=== PATIENT | female | born 1935 | race Caucasian/White ===

== ENCOUNTER 2018-01-11 11:29 | Inpatient (IN) ==
[2018-01-11] MEDS ORDERED: ASPIRIN 325 MG TABLET PO STA (11:53)
[2018-01-11 12:22] LABS: Basophils % 0.3 % (0.0-0.8); Eosinophils # 0.1 10*3/uL (0.0-0.87); Eosinophils % 0.4 % (0.00-10.9); Hematocrit 32.5 VOL% (35.7-47.0); Hemoglobin 10.8 GM/DL (12.0-16.0); Immature Granulocytes % 0.3 %; Immature Granulocytes Absolute 0.03 #; Lymphocytes # 1.5 10*3/uL (1.4-4.0); Lymphocytes % 12.9 % (21.3-54.2); Mean Corpuscular HGB Conc 33.2 GM/DL (32-36); Mean Corpuscular Hemoglobin 28 PG (27-34); Mean Corpuscular Volume 84.2 FL (87-102); Mean Platelet Volume 10.2 FL (9.6-12.0); Monocytes # 1.1 10*3/uL (0.11-0.8); Monocytes % 9.8 % (1.7-12.7); Neutrophils # 8.6 10*3/uL (1.4-7.4); Neutrophils % 76.3 % (38.7-73.9); Platelet Count 349 T/CUMM (130-400); Red Blood Count 3.86 MC/CUMM (3.8-5.5); Red Cell Distribution Width 15.7 % (9.3-17.3); White Blood Count 11.3 T/CUMM (4-12)
[2018-01-11 12:32] LABS: INR 1.5; PT Patient Result 15.4 SECS
[2018-01-11] MEDS ORDERED: ASPIRIN 325 MG TABLET ONE (12:39)
[2018-01-11 12:53] LABS: Alanine Aminotransferase 44 U/L (13-56); Albumin 2.9 G/DL (3.4-5.0); Alkaline Phosphatase 100 U/L (45-117); Aspartate Amino Transferase 22 U/L (0-37); Bilirubin,Total < 0.39 MG/DL (0.2-1.0); Blood Urea Nitrogen 13 MG/DL (7-18); Calcium 8.6 MG/DL (8.5-10.1); Glucose 94 MG/DL (74-106); Osmolality,Calculated 269.1 MOS/KG (273-304); Potassium 3.2 MMOL/L (3.5-5.1); Sodium 135 MMOL/L (136-145); Total Protein 6.9 G/DL (6.4-8.3)
[2018-01-11 13:21] LABS: Apearance,Urine Clear (Clear); Bilirubin,Urine Negative (Negative); Blood, Urine Negative (Negative); Glucose,Urine (UA) Negative (Negative); Ictotest,Urine Negative (Negative); Ketones,Urine Negative (Negative); Nitrite,Urine Negative (Negative); Protein,Urine Negative; Urine Color Yellow (Yellow); Urine Urobilinogen 0.2 EU/DL (0.2-1.0)
[2018-01-11] MEDS ORDERED: ACETAMINOPHEN 500 MG TABLET ONE (17:13)
[2018-01-11] MEDS ORDERED: ACETAMINOPHEN 500 MG TABLET PO STA (18:14)
[2018-01-11] MEDS ORDERED: ONDANSETRON 4 MG TABLET PO PRN (19:57)
[2018-01-11] MEDS ORDERED: EZFE PO SCH (21:00)
[2018-01-11] MEDS: METOCLOPRAMIDE 5 MG TABLET PO SCH (21:02)
[2018-01-11] MEDS: MULTIVITAMIN (OCUVITE) TABLET PO SCH (21:02)
[2018-01-11] MEDS: DILTIAZEM 60 MG TABLET PO SCH (21:02)
[2018-01-11] MEDS: PRAVASTATIN 40 MG TABLET PO SCH (21:02)
[2018-01-11] MEDS: POTASSIUM CHLORIDE 10 MEQ TABLET PO SCH (21:03)
[2018-01-11] MEDS: CLINDAMYCIN INJ 600 MG in PREMIX 1 EACH IV SCH (22:09)
[2018-01-11] MEDS: ceFAZolin 1,000 MG in SYRINGE 1 EACH IV SCH (22:11)
[2018-01-11] MEDS: ONDANSETRON 4 MG/2 ML VIAL IV PRN (23:02)
[2018-01-12] MEDS: ACETAMINOPHEN 325 MG TABLET PO PRN ×2 (05:25→22:16)
[2018-01-12] MEDS: CLINDAMYCIN INJ 600 MG in PREMIX 1 EACH IV SCH ×3 (05:26→22:27)
[2018-01-12 05:35] LABS: Basophils % 0.4 % (0.0-0.8); Eosinophils # 0.1 10*3/uL (0.0-0.87); Eosinophils % 1.4 % (0.00-10.9); Hematocrit 30.4 VOL% (35.7-47.0); Hemoglobin 10.1 GM/DL (12.0-16.0); Immature Granulocytes % 0.8 %; Immature Granulocytes Absolute 0.06 #; Lymphocytes # 1.8 10*3/uL (1.4-4.0); Lymphocytes % 22.4 % (21.3-54.2); Mean Corpuscular HGB Conc 33.2 GM/DL (32-36); Mean Corpuscular Hemoglobin 28 PG (27-34); Mean Corpuscular Volume 83.7 FL (87-102); Mean Platelet Volume 10.3 FL (9.6-12.0); Monocytes # 0.8 10*3/uL (0.11-0.8); Monocytes % 9.5 % (1.7-12.7); Neutrophils # 5.2 10*3/uL (1.4-7.4); Neutrophils % 65.5 % (38.7-73.9); Platelet Count 302 T/CUMM (130-400); Red Blood Count 3.63 MC/CUMM (3.8-5.5); Red Cell Distribution Width 15.9 % (9.3-17.3); White Blood Count 7.9 T/CUMM (4-12)
[2018-01-12 06:01] LABS: Albumin 2.6 G/DL (3.4-5.0); Bilirubin,Total 0.8 MG/DL (0.2-1.0); Calcium 8.3 MG/DL (8.5-10.1); Osmolality,Calculated 270.8 MOS/KG (273-304); Potassium 3.5 MMOL/L (3.5-5.1); Total Protein 5.6 G/DL (6.4-8.3)
[2018-01-12] MEDS: METOCLOPRAMIDE 5 MG TABLET PO SCH ×4 (08:30→22:04)
[2018-01-12] MEDS: ASCORBIC ACID 500 MG TABLET PO SCH (08:59)
[2018-01-12] MEDS: DILTIAZEM 60 MG TABLET PO SCH ×2 (09:00→22:08)
[2018-01-12] MEDS: PANTOPRAZOLE 40 MG TABLET PO SCH (09:00)
[2018-01-12] MEDS: POTASSIUM CHLORIDE 10 MEQ TABLET PO SCH ×2 (09:00→22:05)
[2018-01-12] MEDS: MULTIVITAMIN (CENTRUM) TABLET PO SCH (09:00)
[2018-01-12] MEDS: ASPIRIN EC 81 MG TABLET PO SCH (09:01)
[2018-01-12] MEDS: MULTIVITAMIN (OCUVITE) TABLET PO SCH ×2 (09:01→22:09)
[2018-01-12] MEDS: hydroCHLOROthiazide 25 MG TABLET PO SCH (09:01)
[2018-01-12] MEDS: ceFAZolin 1,000 MG in SYRINGE 1 EACH IV SCH ×2 (09:39→22:19)
[2018-01-12] MEDS: busPIRone 5 MG TABLET PO SCH ×2 (11:35→22:08)
[2018-01-12] MEDS: ENOXAPARIN 80 MG/0.8 ML SYRINGE SUBCUT SCH ×2 (11:36→23:00)
[2018-01-12] MEDS: SOTALOL 80 MG TABLET PO SCH (22:06)
[2018-01-12] MEDS: PRAVASTATIN 40 MG TABLET PO SCH (22:08)
[2018-01-12] MEDS: MELATONIN 3 MG TABLET PO SCH (22:10)
[2018-01-13] MEDS: ONDANSETRON 4 MG/2 ML VIAL IV PRN ×4 (03:50→21:53)
[2018-01-13] MEDS: CLINDAMYCIN INJ 600 MG in PREMIX 1 EACH IV SCH (06:45)
[2018-01-13] MEDS: METOCLOPRAMIDE 5 MG TABLET PO SCH ×4 (07:38→20:35)
[2018-01-13] MEDS: MULTIVITAMIN (CENTRUM) TABLET PO SCH (09:46)
[2018-01-13] MEDS: MULTIVITAMIN (OCUVITE) TABLET PO SCH ×2 (09:46→20:36)
[2018-01-13] MEDS: ASCORBIC ACID 500 MG TABLET PO SCH (09:46)
[2018-01-13] MEDS: SOTALOL 80 MG TABLET PO SCH ×2 (09:47→20:41)
[2018-01-13] MEDS: busPIRone 5 MG TABLET PO SCH ×2 (09:47→20:35)
[2018-01-13] MEDS: POTASSIUM CHLORIDE 10 MEQ TABLET PO SCH ×2 (09:47→20:37)
[2018-01-13] MEDS: DILTIAZEM 60 MG TABLET PO SCH ×2 (09:47→20:35)
[2018-01-13] MEDS: hydroCHLOROthiazide 25 MG TABLET PO SCH (09:47)
[2018-01-13] MEDS: ASPIRIN EC 81 MG TABLET PO SCH (09:47)
[2018-01-13] MEDS: PANTOPRAZOLE 40 MG TABLET PO SCH (09:47)
[2018-01-13] MEDS: ceFAZolin 1,000 MG in SYRINGE 1 EACH IV SCH ×2 (09:59→22:23)
[2018-01-13] MEDS ORDERED: DIAZEPAM 5 MG TABLET PO ONE (10:23)
[2018-01-13] MEDS: ENOXAPARIN 80 MG/0.8 ML SYRINGE SUBCUT SCH ×2 (10:35→23:25)
[2018-01-13] MEDS: ACETAMINOPHEN 325 MG TABLET PO PRN ×2 (14:06→21:53)
[2018-01-13] MEDS ORDERED: ZINC OXIDE PASTE 113 GM TUBE TOP PRN (16:42)
[2018-01-13] MEDS: PRAVASTATIN 40 MG TABLET PO SCH (20:36)
[2018-01-13] MEDS: MELATONIN 3 MG TABLET PO SCH (20:41)
[2018-01-14 04:40] LABS: Basophils % 0.4 % (0.0-0.8); Eosinophils # 0.1 10*3/uL (0.0-0.87); Eosinophils % 1.7 % (0.00-10.9); Hematocrit 34.6 VOL% (35.7-47.0); Immature Granulocytes % 0.4 %; Immature Granulocytes Absolute 0.03 #; Lymphocytes # 1.4 10*3/uL (1.4-4.0); Lymphocytes % 17.7 % (21.3-54.2); Mean Corpuscular HGB Conc 31.8 GM/DL (32-36); Mean Corpuscular Hemoglobin 28 PG (27-34); Mean Corpuscular Volume 86.7 FL (87-102); Mean Platelet Volume 10.6 FL (9.6-12.0); Monocytes # 0.6 10*3/uL (0.11-0.8); Monocytes % 8.2 % (1.7-12.7); Neutrophils # 5.6 10*3/uL (1.4-7.4); Neutrophils % 71.6 % (38.7-73.9); Platelet Count 356 T/CUMM (130-400); Red Blood Count 3.99 MC/CUMM (3.8-5.5); Red Cell Distribution Width 15.5 % (9.3-17.3); White Blood Count 7.8 T/CUMM (4-12)
[2018-01-14 04:57] LABS: Calcium 8.6 MG/DL (8.5-10.1); Potassium 3.4 MMOL/L (3.5-5.1)
[2018-01-14 05:02] LABS: Albumin 2.7 G/DL (3.4-5.0); Bilirubin,Total 0.5 MG/DL (0.2-1.0); Calcium 8.5 MG/DL (8.5-10.1); Osmolality,Calculated 272.8 MOS/KG (273-304); Potassium 3.5 MMOL/L (3.5-5.1); Total Protein 6.2 G/DL (6.4-8.3)
[2018-01-14 05:03] LABS: % Iron Saturation 15.7 % (18-50); Ferritin 143.4 ng/ml (8-252)
[2018-01-14] MEDS: ONDANSETRON 4 MG/2 ML VIAL IV PRN (05:40)
[2018-01-14] MEDS ORDERED: DIAZEPAM 5 MG TABLET PO ONE ×2 (06:00→08:26)
[2018-01-14] MEDS: METOCLOPRAMIDE 5 MG TABLET PO SCH ×4 (08:35→21:46)
[2018-01-14] MEDS ORDERED: fentaNYL 100 MCG/2 ML VIAL ONE (09:25)
[2018-01-14] MEDS ORDERED: MIDAZOLAM 2 MG/2 ML VIAL ONE (09:25)
[2018-01-14] MEDS ORDERED: PROPOFOL 200 MG/20 ML VIAL IV ONE (10:00)
[2018-01-14] MEDS ORDERED: LIDOCAINE 2% 5 ML VIAL ONE (10:00)
[2018-01-14] MEDS ORDERED: ONDANSETRON 4 MG/2 ML VIAL ONE (10:00)
[2018-01-14] MEDS: ceFAZolin 1,000 MG in SYRINGE 1 EACH IV SCH ×3 (10:17→22:55)
[2018-01-14] MEDS ORDERED: MAGNESIUM SULF RIDER 4 GM in PREMIX 1 EACH IV PRN (11:15)
[2018-01-14] MEDS: ENOXAPARIN 80 MG/0.8 ML SYRINGE SUBCUT SCH (12:32)
[2018-01-14] MEDS: DILTIAZEM 60 MG TABLET PO SCH ×2 (13:30→21:43)
[2018-01-14] MEDS: SOTALOL 80 MG TABLET PO SCH ×2 (13:30→21:44)
[2018-01-14] MEDS: ASPIRIN EC 81 MG TABLET PO SCH (13:31)
[2018-01-14] MEDS: POTASSIUM CHLORIDE 10 MEQ TABLET PO SCH ×2 (13:31→21:46)
[2018-01-14] MEDS: PANTOPRAZOLE 40 MG TABLET PO SCH (13:31)
[2018-01-14] MEDS: hydroCHLOROthiazide 25 MG TABLET PO SCH (13:31)
[2018-01-14] MEDS: busPIRone 5 MG TABLET PO SCH ×2 (13:32→21:44)
[2018-01-14] MEDS: MULTIVITAMIN (CENTRUM) TABLET PO SCH (13:33)
[2018-01-14] MEDS: MULTIVITAMIN (OCUVITE) TABLET PO SCH ×2 (13:33→21:47)
[2018-01-14] MEDS: ASCORBIC ACID 500 MG TABLET PO SCH (13:33)
[2018-01-14] MEDS ORDERED: IRON SUCROSE 300 MG in SODIUM CHLORIDE 0.9% 100 ML IV ONE (13:58)
[2018-01-14] MEDS: ACETAMINOPHEN 325 MG TABLET PO PRN (14:45)
[2018-01-14] MEDS ORDERED: POLYETHYLENE GLYCOL POWDER 255 GM BOTTLE PO ONE (18:10)
[2018-01-14] MEDS: PRAVASTATIN 40 MG TABLET PO SCH (21:46)
[2018-01-15] MEDS: MELATONIN 3 MG TABLET PO SCH ×2 (00:01→21:06)
[2018-01-15] MEDS: ceFAZolin 1,000 MG in SYRINGE 1 EACH IV SCH ×3 (00:05→21:08)
[2018-01-15] MEDS: ENOXAPARIN 80 MG/0.8 ML SYRINGE SUBCUT SCH ×2 (02:05→11:41)
[2018-01-15] MEDS: ONDANSETRON 4 MG/2 ML VIAL IV PRN ×2 (02:16→17:37)
[2018-01-15 04:42] LABS: Basophils % 0.4 % (0.0-0.8); Eosinophils # 0.1 10*3/uL (0.0-0.87); Eosinophils % 0.9 % (0.00-10.9); Hemoglobin 10.6 GM/DL (12.0-16.0); Immature Granulocytes % 0.7 %; Immature Granulocytes Absolute 0.06 #; Lymphocytes # 1.2 10*3/uL (1.4-4.0); Lymphocytes % 13.1 % (21.3-54.2); Mean Corpuscular HGB Conc 32.1 GM/DL (32-36); Mean Corpuscular Hemoglobin 28 PG (27-34); Mean Corpuscular Volume 86.2 FL (87-102); Mean Platelet Volume 10.4 FL (9.6-12.0); Monocytes # 0.8 10*3/uL (0.11-0.8); Monocytes % 8.3 % (1.7-12.7); Neutrophils # 6.9 10*3/uL (1.4-7.4); Neutrophils % 76.6 % (38.7-73.9); Platelet Count 330 T/CUMM (130-400); Red Blood Count 3.83 MC/CUMM (3.8-5.5); Red Cell Distribution Width 15.5 % (9.3-17.3); White Blood Count 9.1 T/CUMM (4-12)
[2018-01-15 05:12] LABS: Calcium 8.4 MG/DL (8.5-10.1); Osmolality,Calculated 274.7 MOS/KG (273-304); Potassium 3.3 MMOL/L (3.5-5.1)
[2018-01-15 05:41] LABS: Folate 15.8 NG/ML (5.4-24.0)
[2018-01-15] MEDS ORDERED: MAGNESIUM CITRATE 300 ML BOTTLE PO ONE (06:00)
[2018-01-15] MEDS: METOCLOPRAMIDE 5 MG TABLET PO SCH ×4 (08:49→21:08)
[2018-01-15] MEDS: MAGNESIUM SULF RIDER 2 GM in PREMIX 1 EACH IV PRN (09:10)
[2018-01-15] MEDS: ASPIRIN EC 81 MG TABLET PO SCH ×2 (09:39→14:47)
[2018-01-15] MEDS: SOTALOL 80 MG TABLET PO SCH ×3 (09:39→21:06)
[2018-01-15] MEDS: DILTIAZEM 60 MG TABLET PO SCH ×3 (09:40→21:06)
[2018-01-15] MEDS: hydroCHLOROthiazide 25 MG TABLET PO SCH ×2 (09:40→14:44)
[2018-01-15] MEDS: POTASSIUM CHLORIDE 10 MEQ TABLET PO SCH ×3 (09:40→21:05)
[2018-01-15] MEDS: MULTIVITAMIN (CENTRUM) TABLET PO SCH ×2 (09:40→14:45)
[2018-01-15] MEDS: busPIRone 5 MG TABLET PO SCH ×2 (09:40→21:08)
[2018-01-15] MEDS: PANTOPRAZOLE 40 MG TABLET PO SCH ×2 (09:41→14:46)
[2018-01-15] MEDS: MULTIVITAMIN (OCUVITE) TABLET PO SCH ×3 (09:41→21:06)
[2018-01-15] MEDS: ASCORBIC ACID 500 MG TABLET PO SCH ×2 (09:41→14:46)
[2018-01-15] MEDS: CHOLECALCIFEROL 1,000 UNIT TABLET PO SCH ×2 (09:41→14:45)
[2018-01-15] MEDS ORDERED: ONDANSETRON 4 MG/2 ML VIAL ONE (12:39)
[2018-01-15] MEDS ORDERED: PROPOFOL 200 MG/20 ML VIAL IV ONE (12:39)
[2018-01-15] MEDS ORDERED: LIDOCAINE 2% 5 ML VIAL ONE (12:39)
[2018-01-15] MEDS: APIXABAN 5 MG TABLET PO SCH ×2 (14:44→21:06)
[2018-01-15] MEDS: POTASSIUM CHLORIDE RIDER 10 MEQ in PREMIX 1 EACH IV PRN ×3 (14:50→23:29)
[2018-01-15] MEDS: ACETAMINOPHEN 325 MG TABLET PO PRN (17:38)
[2018-01-15] MEDS: PRAVASTATIN 40 MG TABLET PO SCH (21:07)
[2018-01-16] MEDS: ACETAMINOPHEN 325 MG TABLET PO PRN (00:13)
[2018-01-16] MEDS: POTASSIUM CHLORIDE RIDER 10 MEQ in PREMIX 1 EACH IV PRN (03:30)
[2018-01-16 05:34] LABS: Basophils % 0.3 % (0.0-0.8); Eosinophils # 0.1 10*3/uL (0.0-0.87); Hematocrit 31.9 VOL% (35.7-47.0); Hemoglobin 9.9 GM/DL (12.0-16.0); Immature Granulocytes % 0.5 %; Immature Granulocytes Absolute 0.05 #; Lymphocytes # 1.8 10*3/uL (1.4-4.0); Lymphocytes % 19.3 % (21.3-54.2); Mean Corpuscular Hemoglobin 27 PG (27-34); Mean Corpuscular Volume 86.4 FL (87-102); Mean Platelet Volume 10.2 FL (9.6-12.0); Monocytes % 10.1 % (1.7-12.7); Neutrophils # 6.4 10*3/uL (1.4-7.4); Neutrophils % 68.8 % (38.7-73.9); Platelet Count 296 T/CUMM (130-400); Red Blood Count 3.69 MC/CUMM (3.8-5.5); Red Cell Distribution Width 15.8 % (9.3-17.3); White Blood Count 9.4 T/CUMM (4-12)
[2018-01-16 06:05] LABS: Alanine Aminotransferase 28 U/L (13-56); Albumin 2.4 G/DL (3.4-5.0); Alkaline Phosphatase 90 U/L (45-117); Aspartate Amino Transferase 20 U/L (0-37); Bilirubin,Total < 0.39 MG/DL (0.2-1.0); Blood Urea Nitrogen 15 MG/DL (7-18); Glucose 100 MG/DL (74-106); Osmolality,Calculated 273.8 MOS/KG (273-304); Potassium 3.9 MMOL/L (3.5-5.1); Sodium 137 MMOL/L (136-145); Total Protein 5.5 G/DL (6.4-8.3)
[2018-01-16] MEDS: ceFAZolin 1,000 MG in SYRINGE 1 EACH IV SCH ×2 (09:57→23:12)
[2018-01-16] MEDS: MULTIVITAMIN (CENTRUM) TABLET PO SCH (09:58)
[2018-01-16] MEDS: POTASSIUM CHLORIDE 10 MEQ TABLET PO SCH ×2 (09:58→23:00)
[2018-01-16] MEDS: busPIRone 5 MG TABLET PO SCH ×2 (09:58→23:01)
[2018-01-16] MEDS: SOTALOL 80 MG TABLET PO SCH ×2 (09:58→23:01)
[2018-01-16] MEDS: PANTOPRAZOLE 40 MG TABLET PO SCH (09:58)
[2018-01-16] MEDS: METOCLOPRAMIDE 5 MG TABLET PO SCH ×3 (09:59→16:13)
[2018-01-16] MEDS: hydroCHLOROthiazide 25 MG TABLET PO SCH (09:59)
[2018-01-16] MEDS: ASPIRIN EC 81 MG TABLET PO SCH (09:59)
[2018-01-16] MEDS: APIXABAN 5 MG TABLET PO SCH ×2 (09:59→23:01)
[2018-01-16] MEDS: CHOLECALCIFEROL 1,000 UNIT TABLET PO SCH (09:59)
[2018-01-16] MEDS: ASCORBIC ACID 500 MG TABLET PO SCH (09:59)
[2018-01-16] MEDS: MULTIVITAMIN (OCUVITE) TABLET PO SCH (10:00)
[2018-01-16] MEDS: DILTIAZEM 60 MG TABLET PO SCH (10:00)
[2018-01-16] MEDS ORDERED: TUBERCULIN SKIN TEST 0.1 ML SYRINGE INTRADERM ONE (10:40)
[2018-01-16] MEDS: MELATONIN 3 MG TABLET PO SCH (23:00)
[2018-01-16] MEDS: ZALEPLON 5 MG CAPSULE PO PRN (23:01)
[2018-01-16] MEDS: PRAVASTATIN 40 MG TABLET PO SCH (23:01)
[2018-01-16] MEDS: DILTIAZEM 30 MG TABLET PO SCH (23:01)
[2018-01-17] MEDS: ONDANSETRON 4 MG/2 ML VIAL IV PRN ×2 (00:15→05:00)
[2018-01-17 05:13] LABS: Basophils % 0.5 % (0.0-0.8); Eosinophils # 0.2 10*3/uL (0.0-0.87); Eosinophils % 2.5 % (0.00-10.9); Hematocrit 34.8 VOL% (35.7-47.0); Hemoglobin 10.7 GM/DL (12.0-16.0); Immature Granulocytes % 0.5 %; Immature Granulocytes Absolute 0.04 #; Lymphocytes # 1.9 10*3/uL (1.4-4.0); Lymphocytes % 22.3 % (21.3-54.2); Mean Corpuscular HGB Conc 30.7 GM/DL (32-36); Mean Corpuscular Hemoglobin 27 PG (27-34); Mean Corpuscular Volume 87.7 FL (87-102); Mean Platelet Volume 10.2 FL (9.6-12.0); Monocytes # 0.8 10*3/uL (0.11-0.8); Monocytes % 8.9 % (1.7-12.7); Neutrophils # 5.6 10*3/uL (1.4-7.4); Neutrophils % 65.3 % (38.7-73.9); Platelet Count 306 T/CUMM (130-400); Red Blood Count 3.97 MC/CUMM (3.8-5.5); Red Cell Distribution Width 15.9 % (9.3-17.3); White Blood Count 8.6 T/CUMM (4-12)
[2018-01-17 05:50] LABS: Albumin 2.7 G/DL (3.4-5.0); Bilirubin,Total 0.5 MG/DL (0.2-1.0); Calcium 8.7 MG/DL (8.5-10.1); Osmolality,Calculated 278.5 MOS/KG (273-304); Potassium 3.7 MMOL/L (3.5-5.1); Total Protein 6.3 G/DL (6.4-8.3)
[2018-01-17] MEDS ORDERED: FUROSEMIDE 40 MG/4 ML VIAL ONE (06:09)
[2018-01-17] MEDS ORDERED: FUROSEMIDE 40 MG/4 ML VIAL IV ONE (07:04)
[2018-01-17] MEDS ORDERED: FUROSEMIDE 40 MG/4 ML VIAL IV SCH (09:00)
[2018-01-17] MEDS: SOTALOL 80 MG TABLET PO SCH ×2 (09:24→20:55)
[2018-01-17] MEDS: CHOLECALCIFEROL 1,000 UNIT TABLET PO SCH (09:24)
[2018-01-17] MEDS: PANTOPRAZOLE 40 MG TABLET PO SCH (09:25)
[2018-01-17] MEDS: busPIRone 5 MG TABLET PO SCH ×2 (09:25→20:56)
[2018-01-17] MEDS: DILTIAZEM 30 MG TABLET PO SCH ×2 (09:25→20:56)
[2018-01-17] MEDS: POTASSIUM CHLORIDE 10 MEQ TABLET PO SCH ×2 (09:25→20:56)
[2018-01-17] MEDS: APIXABAN 5 MG TABLET PO SCH ×2 (09:25→20:55)
[2018-01-17] MEDS: ASCORBIC ACID 500 MG TABLET PO SCH (09:25)
[2018-01-17] MEDS: ASPIRIN EC 81 MG TABLET PO SCH (09:25)
[2018-01-17] MEDS: hydroCHLOROthiazide 25 MG TABLET PO SCH (09:25)
[2018-01-17] MEDS: ceFAZolin 1,000 MG in SYRINGE 1 EACH IV SCH (09:26)
[2018-01-17] MEDS: ANORO ELLIPTA INH SCH (13:06)
[2018-01-17] MEDS: FUROSEMIDE 20 MG TABLET PO SCH (13:18)
[2018-01-17] MEDS: MELATONIN 3 MG TABLET PO SCH (20:55)
[2018-01-17] MEDS: PRAVASTATIN 40 MG TABLET PO SCH (20:56)
[2018-01-17] MEDS: ZALEPLON 5 MG CAPSULE PO PRN (22:18)
[2018-01-18 05:30] LABS: Basophils # 0.1 10*3/uL (0.0-0.2); Basophils % 0.7 % (0.0-0.8); Eosinophils # 0.2 10*3/uL (0.0-0.87); Eosinophils % 2.5 % (0.00-10.9); Hematocrit 34.5 VOL% (35.7-47.0); Hemoglobin 10.7 GM/DL (12.0-16.0); Immature Granulocytes % 0.7 %; Immature Granulocytes Absolute 0.05 #; Lymphocytes # 1.7 10*3/uL (1.4-4.0); Lymphocytes % 23.5 % (21.3-54.2); Mean Corpuscular Hemoglobin 27 PG (27-34); Mean Corpuscular Volume 87.3 FL (87-102); Mean Platelet Volume 10.2 FL (9.6-12.0); Monocytes # 0.7 10*3/uL (0.11-0.8); Monocytes % 9.5 % (1.7-12.7); Neutrophils # 4.6 10*3/uL (1.4-7.4); Neutrophils % 63.1 % (38.7-73.9); Platelet Count 326 T/CUMM (130-400); Red Blood Count 3.95 MC/CUMM (3.8-5.5); Red Cell Distribution Width 15.9 % (9.3-17.3); White Blood Count 7.3 T/CUMM (4-12)
[2018-01-18] MEDS: ONDANSETRON 4 MG/2 ML VIAL IV PRN (05:55)
[2018-01-18 06:15] LABS: Albumin 2.7 G/DL (3.4-5.0); Bilirubin,Total 0.5 MG/DL (0.2-1.0); Calcium 8.4 MG/DL (8.5-10.1); Osmolality,Calculated 272.8 MOS/KG (273-304); Potassium 3.6 MMOL/L (3.5-5.1); Total Protein 5.9 G/DL (6.4-8.3)
[2018-01-18] MEDS: CHOLECALCIFEROL 1,000 UNIT TABLET PO SCH (09:46)
[2018-01-18] MEDS: SOTALOL 80 MG TABLET PO SCH ×2 (09:46→21:27)
[2018-01-18] MEDS: ASCORBIC ACID 500 MG TABLET PO SCH (09:46)
[2018-01-18] MEDS: FUROSEMIDE 20 MG TABLET PO SCH (09:47)
[2018-01-18] MEDS: POTASSIUM CHLORIDE 10 MEQ TABLET PO SCH ×2 (09:47→21:28)
[2018-01-18] MEDS: ASPIRIN EC 81 MG TABLET PO SCH (09:47)
[2018-01-18] MEDS: busPIRone 5 MG TABLET PO SCH ×2 (09:47→21:27)
[2018-01-18] MEDS: APIXABAN 5 MG TABLET PO SCH ×2 (09:47→21:28)
[2018-01-18] MEDS: PANTOPRAZOLE 40 MG TABLET PO SCH (09:47)
[2018-01-18] MEDS: DILTIAZEM 30 MG TABLET PO SCH ×2 (09:47→21:27)
[2018-01-18] MEDS: ANORO ELLIPTA INH SCH (09:48)
[2018-01-18] MEDS ORDERED: POLYETHYLENE GLYCOL POWDER 17 GM PACK PO PRN (09:53)
[2018-01-18] MEDS: MAGNESIUM SULF RIDER 2 GM in PREMIX 1 EACH IV PRN (14:20)
[2018-01-18] MEDS: DOCUSATE SODIUM 100 MG CAPSULE PO SCH (21:27)
[2018-01-18] MEDS: MELATONIN 3 MG TABLET PO SCH (21:28)
[2018-01-18] MEDS: PRAVASTATIN 40 MG TABLET PO SCH (21:28)
[2018-01-18] MEDS: ACETAMINOPHEN 325 MG TABLET PO PRN (23:33)
[2018-01-19] MEDS: SOTALOL 80 MG TABLET PO SCH ×2 (09:27→20:30)
[2018-01-19] MEDS: APIXABAN 5 MG TABLET PO SCH ×2 (09:27→20:31)
[2018-01-19] MEDS: PANTOPRAZOLE 40 MG TABLET PO SCH (09:27)
[2018-01-19] MEDS: DOCUSATE SODIUM 100 MG CAPSULE PO SCH ×2 (09:27→20:31)
[2018-01-19] MEDS: DILTIAZEM 30 MG TABLET PO SCH ×2 (09:27→20:31)
[2018-01-19] MEDS: POTASSIUM CHLORIDE 10 MEQ TABLET PO SCH ×2 (09:28→20:31)
[2018-01-19] MEDS: CHOLECALCIFEROL 1,000 UNIT TABLET PO SCH (09:28)
[2018-01-19] MEDS: ASPIRIN EC 81 MG TABLET PO SCH (09:28)
[2018-01-19] MEDS: FUROSEMIDE 20 MG TABLET PO SCH (09:28)
[2018-01-19] MEDS: busPIRone 5 MG TABLET PO SCH ×2 (09:28→20:31)
[2018-01-19] MEDS: ASCORBIC ACID 500 MG TABLET PO SCH (09:28)
[2018-01-19] MEDS: ANORO ELLIPTA INH SCH (09:29)
[2018-01-19] MEDS: MELATONIN 3 MG TABLET PO SCH (20:32)
[2018-01-19] MEDS: PRAVASTATIN 40 MG TABLET PO SCH (20:32)
[2018-01-20] MEDS: DOCUSATE SODIUM 100 MG CAPSULE PO SCH ×2 (09:12→21:30)
[2018-01-20] MEDS: CHOLECALCIFEROL 1,000 UNIT TABLET PO SCH (09:12)
[2018-01-20] MEDS: SOTALOL 80 MG TABLET PO SCH ×2 (09:12→21:30)
[2018-01-20] MEDS: APIXABAN 5 MG TABLET PO SCH ×2 (09:12→21:30)
[2018-01-20] MEDS: FUROSEMIDE 20 MG TABLET PO SCH (09:13)
[2018-01-20] MEDS: POTASSIUM CHLORIDE 10 MEQ TABLET PO SCH ×2 (09:13→21:30)
[2018-01-20] MEDS: DILTIAZEM 30 MG TABLET PO SCH ×2 (09:14→21:30)
[2018-01-20] MEDS: busPIRone 5 MG TABLET PO SCH ×2 (09:14→21:38)
[2018-01-20] MEDS: ASPIRIN EC 81 MG TABLET PO SCH (09:14)
[2018-01-20] MEDS: ASCORBIC ACID 500 MG TABLET PO SCH (09:14)
[2018-01-20] MEDS: ANORO ELLIPTA INH SCH (09:15)
[2018-01-20] MEDS: PANTOPRAZOLE 40 MG TABLET PO SCH (09:15)
[2018-01-20] MEDS: ACETAMINOPHEN 325 MG TABLET PO PRN (18:48)
[2018-01-20] MEDS: PRAVASTATIN 40 MG TABLET PO SCH (21:29)
[2018-01-20] MEDS: MELATONIN 3 MG TABLET PO SCH (21:30)
[2018-01-21 05:05] LABS: Basophils % 0.7 % (0.0-0.8); Eosinophils # 0.2 10*3/uL (0.0-0.87); Eosinophils % 2.7 % (0.00-10.9); Hematocrit 34.2 VOL% (35.7-47.0); Hemoglobin 10.7 GM/DL (12.0-16.0); Immature Granulocytes % 0.8 %; Immature Granulocytes Absolute 0.05 #; Lymphocytes # 1.6 10*3/uL (1.4-4.0); Lymphocytes % 27.3 % (21.3-54.2); Mean Corpuscular HGB Conc 31.3 GM/DL (32-36); Mean Corpuscular Hemoglobin 28 PG (27-34); Mean Corpuscular Volume 88.1 FL (87-102); Mean Platelet Volume 10.4 FL (9.6-12.0); Monocytes # 0.6 10*3/uL (0.11-0.8); Neutrophils # 3.5 10*3/uL (1.4-7.4); Neutrophils % 58.5 % (38.7-73.9); Platelet Count 318 T/CUMM (130-400); Red Blood Count 3.88 MC/CUMM (3.8-5.5); Red Cell Distribution Width 16.4 % (9.3-17.3)
[2018-01-21 05:42] LABS: Calcium 8.5 MG/DL (8.5-10.1); Osmolality,Calculated 280.5 MOS/KG (273-304); Potassium 4.2 MMOL/L (3.5-5.1)
[2018-01-21] MEDS: POTASSIUM CHLORIDE 10 MEQ TABLET PO SCH (09:24)
[2018-01-21] MEDS: SOTALOL 80 MG TABLET PO SCH (09:24)
[2018-01-21] MEDS: CHOLECALCIFEROL 1,000 UNIT TABLET PO SCH (09:24)
[2018-01-21] MEDS: DOCUSATE SODIUM 100 MG CAPSULE PO SCH (09:25)
[2018-01-21] MEDS: FUROSEMIDE 20 MG TABLET PO SCH (09:25)
[2018-01-21] MEDS: ASCORBIC ACID 500 MG TABLET PO SCH (09:25)
[2018-01-21] MEDS: ASPIRIN EC 81 MG TABLET PO SCH (09:25)
[2018-01-21] MEDS: DILTIAZEM 30 MG TABLET PO SCH (09:25)
[2018-01-21] MEDS: APIXABAN 5 MG TABLET PO SCH (09:25)
[2018-01-21] MEDS: busPIRone 5 MG TABLET PO SCH (09:25)
[2018-01-21] MEDS: PANTOPRAZOLE 40 MG TABLET PO SCH (09:25)
[2018-01-21] MEDS: ANORO ELLIPTA INH SCH (09:44)
[2018-01-21 12:00] VITALS: BP 120/66
== END 2018-01-21 13:44 | disposition swing bed (61) | DRG 308 ==
LOC: EDUNIT# → EDBD → N.ED 11:29 → N.EDINP 17:58 → SUATTDRO 17:58 → N.TELEN 18:32
PROVIDERS: ADMIT Hospitalist; ATTEND Internal Medicine

== ENCOUNTER 2020-12-13 20:32 | Inpatient (IN) ==
[2020-12-13 21:45] LABS: Basophils % 0.2 % (0.0-0.8); Eosinophils # 0.1 10*3/uL (0.0-0.87); Hematocrit 37.9 VOL% (35.7-47.0); Hemoglobin 12.2 GM/DL (12.0-16.0); Immature Granulocytes % 0.5 %; Immature Granulocytes Absolute 0.04 #; Lymphocytes # 1.4 10*3/uL (1.4-4.0); Mean Corpuscular HGB Conc 32.2 GM/DL (32-36); Mean Corpuscular Volume 95.5 FL (87-102); Mean Platelet Volume 10.5 FL (9.6-12.0); Monocytes % 8.4 % (1.7-12.7); Neutrophils % 73.9 % (38.7-73.9); Platelet Count 186 T/CUMM (130-400); Red Blood Count 3.97 MC/CUMM (3.8-5.5); Red Cell Distribution Width 14.3 % (9.3-17.3); White Blood Count 8.8 T/CUMM (4-12)
[2020-12-13 22:07] LABS: Alanine Aminotransferase 22 U/L (13-56); Albumin 3.1 G/DL (3.4-5.0); Alkaline Phosphatase 87 U/L (45-117); Aspartate Amino Transferase 35 U/L (0-37); Blood Urea Nitrogen 28 MG/DL (7-18); Calcium 8.6 MG/DL (8.5-10.1); Carbon Dioxide 28 MMOL/L (21-32); Estimated Glom Filtration Rate 46 ML/MIN; Glucose 120 MG/DL (74-106); Osmolality,Calculated 287.3 MOS/KG (273-304); Potassium 4.2 MMOL/L (3.5-5.1); Sodium 141 MMOL/L (136-145); Total Protein 6.7 G/DL (6.4-8.2); Troponin I < 0.015 NG/ML (0.00-0.045)
[2020-12-13 22:25] LABS: Bilirubin,Urine Negative (Negative); Blood, Urine Negative (Negative); Glucose,Urine (UA) Negative (Negative); Ketones,Urine Negative (Negative); Mucus,Urine Occasional /LPF (Occasional); Nitrite,Urine Negative (Negative); Protein,Urine Negative; RBC,Urine 7 /HPF (0-4); Squamous Epithelial Cell,Urine Occasional /HPF (0-10); Urine Appearance Slightly Hazy (Clear); Urine Color Yellow (Yellow); Urine Specific Gravity 1.021 (1.001-1.035); Urine Urobilinogen < 2.0 EU/DL (0.2-1.0); WBC,Urine 3 /HPF (0-6)
[2020-12-13] MEDS ORDERED: NITROGLYCERIN 2% OINT 1 INCH/GM PACK TOP STA (22:40)
[2020-12-13] MEDS ORDERED: ASPIRIN EC 325 MG TABLET PO STA (22:40)
[2020-12-13] MEDS ORDERED: MORPHINE 4 MG/1 ML VIAL IV STA (22:41)
[2020-12-13] MEDS ORDERED: ONDANSETRON 4 MG/2 ML VIAL ONE (22:56)
[2020-12-14 00:28] LABS: INR 1.1; PT Patient Result 11.4 SECS (9.8-11.9)
[2020-12-14] MEDS ORDERED: DEXTROSE 50% 25 GM/50 ML VIAL IV PRN (00:55)
[2020-12-14] MEDS ORDERED: GLUCAGON 1 MG VIAL IM PRN (00:55)
[2020-12-14] MEDS ORDERED: LORazepam 0.5 MG TABLET PO PRN (01:09)
[2020-12-14] MEDS: APIXABAN 2.5 MG TABLET PO SCH ×3 (01:30→21:27)
[2020-12-14] MEDS: LORazepam 1 MG TABLET PO PRN ×3 (02:35→21:30)
[2020-12-14 04:47] LABS: Basophils % 0.3 % (0.0-0.8); Eosinophils # 0.1 10*3/uL (0.0-0.87); Eosinophils % 1.3 % (0.00-10.9); Hemoglobin 11.1 GM/DL (12.0-16.0); Immature Granulocytes % 0.6 %; Immature Granulocytes Absolute 0.04 #; Lymphocytes # 1.8 10*3/uL (1.4-4.0); Lymphocytes % 25.6 % (21.3-54.2); Mean Corpuscular HGB Conc 31.7 GM/DL (32-36); Mean Corpuscular Volume 96.4 FL (87-102); Mean Platelet Volume 10.5 FL (9.6-12.0); Monocytes % 8.4 % (1.7-12.7); Neutrophils % 63.8 % (38.7-73.9); Platelet Count 143 T/CUMM (130-400); Red Blood Count 3.63 MC/CUMM (3.8-5.5); Red Cell Distribution Width 14.4 % (9.3-17.3); White Blood Count 7.1 T/CUMM (4-12)
[2020-12-14 05:14] LABS: Albumin 2.8 G/DL (3.4-5.0); Bilirubin,Total 0.5 MG/DL (0.2-1.0); Calcium 7.9 MG/DL (8.5-10.1); Potassium 3.6 MMOL/L (3.5-5.1); Risk Ratio 3.28; Thyroid Stimulating Hormone 2.63 uIU/ml (0.358-3.74); Total Protein 5.7 G/DL (6.4-8.2); VLDL CHOLESTEROL 22.2 MG/DL
[2020-12-14] MEDS ORDERED: hydrALAZINE 20 MG/1 ML VIAL IV PRN (05:21)
[2020-12-14] MEDS ORDERED: METOCLOPRAMIDE 5 MG TABLET PO PRN (08:15)
[2020-12-14] MEDS ORDERED: METOPROLOL TARTRATE 25 MG TABLET PO SCH (09:00)
[2020-12-14] MEDS ORDERED: METOPROLOL TARTRATE 50 MG TABLET PO SCH (09:00)
[2020-12-14] MEDS: ASPIRIN EC 81 MG TABLET PO SCH ×2 (09:05→21:29)
[2020-12-14] MEDS: PANTOPRAZOLE 40 MG TABLET PO SCH ×2 (09:05→21:24)
[2020-12-14] MEDS: CHOLECALCIFEROL 1,000 UNIT TABLET PO SCH (12:22)
[2020-12-14] MEDS: METOPROLOL TARTRATE 25 MG TABLET PO SCH ×2 (12:23→21:26)
[2020-12-14] MEDS ORDERED: ZINC GLUCONATE 50 MG TABLET PO ONE (21:20)
[2020-12-14] MEDS: ASCORBIC ACID 500 MG TABLET PO SCH (21:28)
[2020-12-14] MEDS: LOSARTAN 50 MG TABLET PO SCH (21:29)
[2020-12-14] MEDS: VITAMIN E 400 UNIT CAPSULE PO SCH (21:30)
[2020-12-14] MEDS: MULTIVITAMIN (INTRINSIC) CAPSULE PO SCH (21:31)
[2020-12-14] MEDS: POTASSIUM CHLORIDE 10 MEQ TABLET PO SCH (21:41)
[2020-12-14] MEDS: LATANOPROST 0.005% OPH SOLN 2.5 ML BOTTLE BOTH EYES SCH (21:42)
[2020-12-14] MEDS: ACETAMINOPHEN 325 MG TABLET PO PRN (23:55)
[2020-12-15] MEDS: CHOLECALCIFEROL 1,000 UNIT TABLET PO SCH (09:02)
[2020-12-15] MEDS: ASPIRIN EC 81 MG TABLET PO SCH (09:02)
[2020-12-15] MEDS: PYRIDOXINE 100 MG TABLET PO SCH (09:02)
[2020-12-15] MEDS: PANTOPRAZOLE 40 MG TABLET PO SCH (09:02)
[2020-12-15] MEDS: APIXABAN 2.5 MG TABLET PO SCH ×2 (09:02→20:57)
[2020-12-15] MEDS: POTASSIUM CHLORIDE 10 MEQ TABLET PO SCH ×2 (09:02→21:01)
[2020-12-15] MEDS: METOPROLOL TARTRATE 25 MG TABLET PO SCH ×2 (09:05→20:59)
[2020-12-15] MEDS ORDERED: NON-FORMULARY MEDICATION (Zinc 50 mg Tablet) PO SCH (12:00)
[2020-12-15] MEDS: ZINC GLUCONATE 50 MG TABLET PO SCH (12:52)
[2020-12-15] MEDS: LORazepam 1 MG TABLET PO PRN ×2 (15:28→20:58)
[2020-12-15] MEDS ORDERED: MAGNESIUM HYDROXIDE SUSP 30 ML UDCUP PO ONE (18:00)
[2020-12-15] MEDS: LOSARTAN 50 MG TABLET PO SCH (20:57)
[2020-12-15] MEDS: VITAMIN E 400 UNIT CAPSULE PO SCH (21:00)
[2020-12-15] MEDS: MULTIVITAMIN (INTRINSIC) CAPSULE PO SCH (21:00)
[2020-12-15] MEDS: ASCORBIC ACID 500 MG TABLET PO SCH (21:00)
[2020-12-15] MEDS: DORZOLAMIDE 2% OPH SOLN 10 ML BOTTLE BOTH EYES SCH (21:02)
[2020-12-15] MEDS: BRIMONIDINE 0.2% OPH SOLN 5 ML BOTTLE BOTH EYES SCH (21:02)
[2020-12-15] MEDS: LATANOPROST 0.005% OPH SOLN 2.5 ML BOTTLE BOTH EYES SCH (21:03)
[2020-12-16 05:28] LABS: Basophils % 0.3 % (0.0-0.8); Eosinophils # 0.2 10*3/uL (0.0-0.87); Eosinophils % 2.1 % (0.00-10.9); Hematocrit 37.7 VOL% (35.7-47.0); Hemoglobin 11.9 GM/DL (12.0-16.0); Immature Granulocytes % 0.5 %; Immature Granulocytes Absolute 0.04 #; Lymphocytes # 1.8 10*3/uL (1.4-4.0); Lymphocytes % 23.1 % (21.3-54.2); Mean Corpuscular HGB Conc 31.6 GM/DL (32-36); Mean Corpuscular Volume 97.4 FL (87-102); Mean Platelet Volume 10.4 FL (9.6-12.0); Monocytes % 10.2 % (1.7-12.7); Neutrophils % 63.8 % (38.7-73.9); Platelet Count 185 T/CUMM (130-400); Red Blood Count 3.87 MC/CUMM (3.8-5.5); Red Cell Distribution Width 14.4 % (9.3-17.3); White Blood Count 7.8 T/CUMM (4-12)
[2020-12-16 05:45] LABS: Calcium 8.3 MG/DL (8.5-10.1); Osmolality,Calculated 276.7 MOS/KG (273-304); Potassium 4.3 MMOL/L (3.5-5.1)
[2020-12-16] MEDS: METOPROLOL TARTRATE 25 MG TABLET PO SCH ×2 (10:39→22:20)
[2020-12-16] MEDS: CHOLECALCIFEROL 1,000 UNIT TABLET PO SCH (10:40)
[2020-12-16] MEDS: PYRIDOXINE 100 MG TABLET PO SCH (10:40)
[2020-12-16] MEDS: APIXABAN 2.5 MG TABLET PO SCH ×2 (10:40→22:18)
[2020-12-16] MEDS: PANTOPRAZOLE 40 MG TABLET PO SCH (10:40)
[2020-12-16] MEDS: POTASSIUM CHLORIDE 10 MEQ TABLET PO SCH ×2 (10:40→22:22)
[2020-12-16] MEDS: ASPIRIN EC 81 MG TABLET PO SCH (10:40)
[2020-12-16] MEDS: BRIMONIDINE 0.2% OPH SOLN 5 ML BOTTLE BOTH EYES SCH ×2 (10:43→22:14)
[2020-12-16] MEDS: DORZOLAMIDE 2% OPH SOLN 10 ML BOTTLE BOTH EYES SCH ×2 (10:43→22:13)
[2020-12-16] MEDS: FUROSEMIDE 40 MG TABLET PO SCH (10:53)
[2020-12-16] MEDS: ZINC GLUCONATE 50 MG TABLET PO SCH (13:18)
[2020-12-16] MEDS: LORazepam 1 MG TABLET PO PRN ×2 (16:48→23:47)
[2020-12-16] MEDS: LATANOPROST 0.005% OPH SOLN 2.5 ML BOTTLE BOTH EYES SCH (22:13)
[2020-12-16] MEDS: LOSARTAN 50 MG TABLET PO SCH (22:15)
[2020-12-16] MEDS: MULTIVITAMIN (INTRINSIC) CAPSULE PO SCH (22:16)
[2020-12-16] MEDS: VITAMIN E 400 UNIT CAPSULE PO SCH (22:17)
[2020-12-16] MEDS: ASCORBIC ACID 500 MG TABLET PO SCH (22:18)
[2020-12-17 06:16] LABS: Basophils % 0.4 % (0.0-0.8); Eosinophils # 0.2 10*3/uL (0.0-0.87); Eosinophils % 2.2 % (0.00-10.9); Hematocrit 35.9 VOL% (35.7-47.0); Hemoglobin 11.1 GM/DL (12.0-16.0); Immature Granulocytes % 0.8 %; Immature Granulocytes Absolute 0.06 #; Lymphocytes # 1.3 10*3/uL (1.4-4.0); Lymphocytes % 16.8 % (21.3-54.2); Mean Corpuscular HGB Conc 30.9 GM/DL (32-36); Mean Corpuscular Volume 97.6 FL (87-102); Mean Platelet Volume 11.2 FL (9.6-12.0); Monocytes % 10.1 % (1.7-12.7); Neutrophils % 69.7 % (38.7-73.9); Platelet Count 171 T/CUMM (130-400); Red Blood Count 3.68 MC/CUMM (3.8-5.5); Red Cell Distribution Width 14.7 % (9.3-17.3); White Blood Count 7.8 T/CUMM (4-12)
[2020-12-17 06:34] LABS: Calcium 8.6 MG/DL (8.5-10.1); Osmolality,Calculated 283.4 MOS/KG (273-304); Potassium 3.7 MMOL/L (3.5-5.1)
[2020-12-17] MEDS: PYRIDOXINE 100 MG TABLET PO SCH (10:00)
[2020-12-17] MEDS: METOPROLOL TARTRATE 25 MG TABLET PO SCH ×2 (10:00→21:15)
[2020-12-17] MEDS: APIXABAN 2.5 MG TABLET PO SCH ×2 (10:01→21:17)
[2020-12-17] MEDS: ASPIRIN EC 81 MG TABLET PO SCH (10:01)
[2020-12-17] MEDS: POTASSIUM CHLORIDE 10 MEQ TABLET PO SCH ×2 (10:01→21:14)
[2020-12-17] MEDS: MAGNESIUM OXIDE 400 MG TABLET PO SCH ×2 (10:01→21:14)
[2020-12-17] MEDS: LORazepam 1 MG TABLET PO PRN ×2 (10:02→19:40)
[2020-12-17] MEDS: PANTOPRAZOLE 40 MG TABLET PO SCH (10:02)
[2020-12-17] MEDS: CHOLECALCIFEROL 1,000 UNIT TABLET PO SCH (10:02)
[2020-12-17] MEDS: BRIMONIDINE 0.2% OPH SOLN 5 ML BOTTLE BOTH EYES SCH ×2 (10:09→21:17)
[2020-12-17] MEDS: DORZOLAMIDE 2% OPH SOLN 10 ML BOTTLE BOTH EYES SCH ×2 (10:09→21:16)
[2020-12-17] MEDS: FUROSEMIDE 40 MG TABLET PO SCH (10:10)
[2020-12-17] MEDS: ZINC GLUCONATE 50 MG TABLET PO SCH (13:03)
[2020-12-17] MEDS: ACETAMINOPHEN 325 MG TABLET PO PRN (13:05)
[2020-12-17] MEDS: LATANOPROST 0.005% OPH SOLN 2.5 ML BOTTLE BOTH EYES SCH (21:12)
[2020-12-17] MEDS: MULTIVITAMIN (INTRINSIC) CAPSULE PO SCH (21:13)
[2020-12-17] MEDS: ASCORBIC ACID 500 MG TABLET PO SCH (21:13)
[2020-12-17] MEDS: LOSARTAN 50 MG TABLET PO SCH (21:16)
[2020-12-17] MEDS: VITAMIN E 400 UNIT CAPSULE PO SCH (21:16)
[2020-12-18 05:27] LABS: Basophils % 0.4 % (0.0-0.8); Eosinophils # 0.1 10*3/uL (0.0-0.87); Eosinophils % 1.6 % (0.00-10.9); Hematocrit 36.2 VOL% (35.7-47.0); Hemoglobin 11.5 GM/DL (12.0-16.0); Immature Granulocytes % 0.7 %; Immature Granulocytes Absolute 0.05 #; Lymphocytes # 1.2 10*3/uL (1.4-4.0); Lymphocytes % 16.5 % (21.3-54.2); Mean Corpuscular HGB Conc 31.8 GM/DL (32-36); Mean Corpuscular Volume 95.5 FL (87-102); Mean Platelet Volume 11.3 FL (9.6-12.0); Monocytes % 9.1 % (1.7-12.7); Neutrophils % 71.7 % (38.7-73.9); Platelet Count 170 T/CUMM (130-400); Red Blood Count 3.79 MC/CUMM (3.8-5.5); Red Cell Distribution Width 14.6 % (9.3-17.3); White Blood Count 7.5 T/CUMM (4-12)
[2020-12-18 05:39] LABS: Calcium 8.5 MG/DL (8.5-10.1); Osmolality,Calculated 282.4 MOS/KG (273-304); Potassium 4.2 MMOL/L (3.5-5.1)
[2020-12-18] MEDS: ASPIRIN EC 81 MG TABLET PO SCH (09:27)
[2020-12-18] MEDS: METOPROLOL TARTRATE 25 MG TABLET PO SCH ×2 (09:27→10:09)
[2020-12-18] MEDS: PANTOPRAZOLE 40 MG TABLET PO SCH (09:28)
[2020-12-18] MEDS: CHOLECALCIFEROL 1,000 UNIT TABLET PO SCH (09:28)
[2020-12-18] MEDS: DORZOLAMIDE 2% OPH SOLN 10 ML BOTTLE BOTH EYES SCH ×2 (09:28→20:04)
[2020-12-18] MEDS: PYRIDOXINE 100 MG TABLET PO SCH (09:28)
[2020-12-18] MEDS: FUROSEMIDE 40 MG TABLET PO SCH ×2 (09:28→17:58)
[2020-12-18] MEDS: POTASSIUM CHLORIDE 10 MEQ TABLET PO SCH ×2 (09:28→20:04)
[2020-12-18] MEDS: APIXABAN 2.5 MG TABLET PO SCH ×2 (09:28→20:05)
[2020-12-18] MEDS ORDERED: METOPROLOL TARTRATE 25 MG TABLET PO ONE (09:36)
[2020-12-18] MEDS: LORazepam 1 MG TABLET PO PRN ×2 (10:07→20:06)
[2020-12-18] MEDS: MAGNESIUM OXIDE 400 MG TABLET PO SCH (10:15)
[2020-12-18] MEDS: BRIMONIDINE 0.2% OPH SOLN 5 ML BOTTLE BOTH EYES SCH ×2 (10:15→20:04)
[2020-12-18] MEDS: ZINC GLUCONATE 50 MG TABLET PO SCH (12:00)
[2020-12-18] MEDS: ASCORBIC ACID 500 MG TABLET PO SCH (20:04)
[2020-12-18] MEDS: VITAMIN E 400 UNIT CAPSULE PO SCH (20:04)
[2020-12-18] MEDS: LOSARTAN 50 MG TABLET PO SCH (20:23)
[2020-12-18] MEDS: MULTIVITAMIN (INTRINSIC) CAPSULE PO SCH (20:24)
[2020-12-18] MEDS: LATANOPROST 0.005% OPH SOLN 2.5 ML BOTTLE BOTH EYES SCH (20:25)
[2020-12-18] MEDS: METOPROLOL TARTRATE 100 MG TABLET PO SCH (21:57)
[2020-12-19 05:34] LABS: Basophils % 0.4 % (0.0-0.8); Eosinophils # 0.2 10*3/uL (0.0-0.87); Eosinophils % 2.6 % (0.00-10.9); Hematocrit 36.9 VOL% (35.7-47.0); Hemoglobin 11.4 GM/DL (12.0-16.0); Immature Granulocytes % 0.6 %; Immature Granulocytes Absolute 0.04 #; Lymphocytes # 1.4 10*3/uL (1.4-4.0); Lymphocytes % 20.9 % (21.3-54.2); Mean Corpuscular HGB Conc 30.9 GM/DL (32-36); Mean Corpuscular Volume 99.2 FL (87-102); Mean Platelet Volume 11.2 FL (9.6-12.0); Neutrophils % 64.5 % (38.7-73.9); Platelet Count 180 T/CUMM (130-400); Red Blood Count 3.72 MC/CUMM (3.8-5.5); Red Cell Distribution Width 14.6 % (9.3-17.3); White Blood Count 6.9 T/CUMM (4-12)
[2020-12-19 05:43] LABS: Osmolality,Calculated 286.1 MOS/KG (273-304); Potassium 4.1 MMOL/L (3.5-5.1)
[2020-12-19] MEDS: ONDANSETRON 4 MG TABLET PO PRN ×2 (07:46→21:34)
[2020-12-19] MEDS: LORazepam 1 MG TABLET PO PRN ×2 (07:46→21:28)
[2020-12-19] MEDS: CHOLECALCIFEROL 1,000 UNIT TABLET PO SCH (09:14)
[2020-12-19] MEDS: POTASSIUM CHLORIDE 10 MEQ TABLET PO SCH ×2 (09:14→21:31)
[2020-12-19] MEDS: ZINC GLUCONATE 50 MG TABLET PO SCH (09:14)
[2020-12-19] MEDS: PYRIDOXINE 100 MG TABLET PO SCH (09:14)
[2020-12-19] MEDS: FUROSEMIDE 40 MG TABLET PO SCH ×2 (09:14→16:32)
[2020-12-19] MEDS: METOPROLOL TARTRATE 100 MG TABLET PO SCH ×2 (09:14→21:30)
[2020-12-19] MEDS: ASPIRIN EC 81 MG TABLET PO SCH (09:14)
[2020-12-19] MEDS: PANTOPRAZOLE 40 MG TABLET PO SCH (09:15)
[2020-12-19] MEDS: LOSARTAN 50 MG TABLET PO SCH ×2 (09:15→21:30)
[2020-12-19] MEDS: BRIMONIDINE 0.2% OPH SOLN 5 ML BOTTLE BOTH EYES SCH ×2 (09:19→21:29)
[2020-12-19] MEDS: DORZOLAMIDE 2% OPH SOLN 10 ML BOTTLE BOTH EYES SCH ×2 (09:19→21:29)
[2020-12-19] MEDS: ACETAMINOPHEN 325 MG TABLET PO PRN (16:46)
[2020-12-19] MEDS: ASCORBIC ACID 500 MG TABLET PO SCH (21:29)
[2020-12-19] MEDS: MULTIVITAMIN (INTRINSIC) CAPSULE PO SCH (21:30)
[2020-12-19] MEDS: VITAMIN E 400 UNIT CAPSULE PO SCH (21:31)
[2020-12-19] MEDS: LATANOPROST 0.005% OPH SOLN 2.5 ML BOTTLE BOTH EYES SCH (21:33)
[2020-12-20 05:10] LABS: Basophils % 0.6 % (0.0-0.8); Eosinophils # 0.2 10*3/uL (0.0-0.87); Eosinophils % 2.4 % (0.00-10.9); Hematocrit 36.4 VOL% (35.7-47.0); Hemoglobin 11.6 GM/DL (12.0-16.0); Immature Granulocytes % 0.5 %; Immature Granulocytes Absolute 0.03 #; Lymphocytes # 1.6 10*3/uL (1.4-4.0); Lymphocytes % 24.2 % (21.3-54.2); Mean Corpuscular HGB Conc 31.9 GM/DL (32-36); Mean Corpuscular Volume 97.1 FL (87-102); Mean Platelet Volume 11.1 FL (9.6-12.0); Monocytes % 10.8 % (1.7-12.7); Neutrophils % 61.5 % (38.7-73.9); Platelet Count 176 T/CUMM (130-400); Red Blood Count 3.75 MC/CUMM (3.8-5.5); Red Cell Distribution Width 14.6 % (9.3-17.3); White Blood Count 6.6 T/CUMM (4-12)
[2020-12-20 05:33] LABS: Calcium 8.7 MG/DL (8.5-10.1); Osmolality,Calculated 278.5 MOS/KG (273-304)
[2020-12-20] MEDS: PANTOPRAZOLE 40 MG TABLET PO SCH (08:58)
[2020-12-20] MEDS: LOSARTAN 50 MG TABLET PO SCH ×2 (08:58→20:51)
[2020-12-20] MEDS: FUROSEMIDE 40 MG TABLET PO SCH ×2 (08:58→16:05)
[2020-12-20] MEDS: CHOLECALCIFEROL 1,000 UNIT TABLET PO SCH (08:58)
[2020-12-20] MEDS: METOPROLOL TARTRATE 100 MG TABLET PO SCH ×2 (08:58→20:50)
[2020-12-20] MEDS: ASPIRIN EC 81 MG TABLET PO SCH (08:58)
[2020-12-20] MEDS: POTASSIUM CHLORIDE 10 MEQ TABLET PO SCH ×2 (08:58→20:52)
[2020-12-20] MEDS: PYRIDOXINE 100 MG TABLET PO SCH (08:59)
[2020-12-20] MEDS: DORZOLAMIDE 2% OPH SOLN 10 ML BOTTLE BOTH EYES SCH ×2 (08:59→20:52)
[2020-12-20] MEDS: LORazepam 1 MG TABLET PO PRN ×2 (08:59→21:02)
[2020-12-20] MEDS: BRIMONIDINE 0.2% OPH SOLN 5 ML BOTTLE BOTH EYES SCH ×2 (08:59→20:52)
[2020-12-20] MEDS: ZINC GLUCONATE 50 MG TABLET PO SCH (09:01)
[2020-12-20] MEDS: ONDANSETRON 4 MG TABLET PO PRN (16:58)
[2020-12-20] MEDS: MULTIVITAMIN (INTRINSIC) CAPSULE PO SCH (20:50)
[2020-12-20] MEDS: VITAMIN E 400 UNIT CAPSULE PO SCH (20:50)
[2020-12-20] MEDS: ASCORBIC ACID 500 MG TABLET PO SCH (20:50)
[2020-12-20] MEDS: APIXABAN 2.5 MG TABLET PO SCH (20:52)
[2020-12-20] MEDS: LATANOPROST 0.005% OPH SOLN 2.5 ML BOTTLE BOTH EYES SCH (20:56)
[2020-12-21] MEDS: ONDANSETRON 4 MG TABLET PO PRN (05:46)
[2020-12-21 06:20] LABS: Basophils % 0.4 % (0.0-0.8); Eosinophils # 0.2 10*3/uL (0.0-0.87); Eosinophils % 2.1 % (0.00-10.9); Hematocrit 37.9 VOL% (35.7-47.0); Hemoglobin 12.4 GM/DL (12.0-16.0); Immature Granulocytes % 0.6 %; Immature Granulocytes Absolute 0.04 #; Lymphocytes # 1.4 10*3/uL (1.4-4.0); Lymphocytes % 19.9 % (21.3-54.2); Mean Corpuscular HGB Conc 32.7 GM/DL (32-36); Mean Corpuscular Volume 94.8 FL (87-102); Mean Platelet Volume 11.2 FL (9.6-12.0); Monocytes % 8.5 % (1.7-12.7); Neutrophils % 68.5 % (38.7-73.9); Platelet Count 194 T/CUMM (130-400); Red Cell Distribution Width 14.6 % (9.3-17.3)
[2020-12-21 06:31] LABS: Calcium 9.2 MG/DL (8.5-10.1); Osmolality,Calculated 277.7 MOS/KG (273-304); Potassium 3.5 MMOL/L (3.5-5.1)
[2020-12-21] MEDS: LORazepam 1 MG TABLET PO PRN (07:35)
[2020-12-21 08:13] VITALS: BP 136/67
[2020-12-21] MEDS: APIXABAN 2.5 MG TABLET PO SCH (08:14)
[2020-12-21] MEDS: PANTOPRAZOLE 40 MG TABLET PO SCH (08:14)
[2020-12-21] MEDS: CHOLECALCIFEROL 1,000 UNIT TABLET PO SCH (08:14)
[2020-12-21] MEDS: FUROSEMIDE 40 MG TABLET PO SCH (08:14)
[2020-12-21] MEDS: METOPROLOL TARTRATE 100 MG TABLET PO SCH (08:14)
[2020-12-21] MEDS: ZINC GLUCONATE 50 MG TABLET PO SCH (08:14)
[2020-12-21] MEDS: ASPIRIN EC 81 MG TABLET PO SCH (08:14)
[2020-12-21] MEDS: LOSARTAN 50 MG TABLET PO SCH (08:15)
[2020-12-21] MEDS: POTASSIUM CHLORIDE 10 MEQ TABLET PO SCH (08:15)
[2020-12-21] MEDS: PYRIDOXINE 100 MG TABLET PO SCH (08:17)
[2020-12-21] MEDS: DORZOLAMIDE 2% OPH SOLN 10 ML BOTTLE BOTH EYES SCH (09:52)
== END 2020-12-21 10:36 | disposition home health service (06) | DRG 312 ==
LOC: EDBD → EDUNIT# → N.ED 20:32 → N.EDINP 20:32 → N.TELEN 12-14 11:52 → SUATTDRO 12-16 15:28
PROVIDERS: ADMIT Internal Medicine Geriatric Medicine; ATTEND Internal Medicine

== ENCOUNTER 2020-12-22 09:41 | Inpatient (IN) ==
[2020-12-22 10:05] LABS: Basophils % 0.3 % (0.0-0.8); Eosinophils # 0.1 10*3/uL (0.0-0.87); Eosinophils % 0.8 % (0.00-10.9); Hematocrit 40.3 VOL% (35.7-47.0); Hemoglobin 12.7 GM/DL (12.0-16.0); Immature Granulocytes % 0.7 %; Immature Granulocytes Absolute 0.06 #; Lymphocytes # 1.3 10*3/uL (1.4-4.0); Lymphocytes % 15.2 % (21.3-54.2); Mean Corpuscular HGB Conc 31.5 GM/DL (32-36); Mean Corpuscular Volume 96.2 FL (87-102); Mean Platelet Volume 10.9 FL (9.6-12.0); Monocytes % 8.1 % (1.7-12.7); Neutrophils % 74.9 % (38.7-73.9); Platelet Count 194 T/CUMM (130-400); Red Blood Count 4.19 MC/CUMM (3.8-5.5); Red Cell Distribution Width 14.5 % (9.3-17.3); White Blood Count 8.7 T/CUMM (4-12)
[2020-12-22 10:14] LABS: PT Patient Result 11.2 SECS (9.8-11.9); Partial Thromboplastin Time 23.8 SECS (23.9-33.8)
[2020-12-22 10:26] LABS: Albumin 3.2 G/DL (3.4-5.0); Bilirubin,Total 0.6 MG/DL (0.2-1.0); Osmolality,Calculated 283.4 MOS/KG (273-304); Potassium 3.4 MMOL/L (3.5-5.1)
[2020-12-22 11:06] LABS: Bacteria,Urine Occasional /HPF (Few); Bilirubin,Urine Negative (Negative); Blood, Urine Moderate mg/dL (Negative); Glucose,Urine (UA) Negative (Negative); Ketones,Urine Negative (Negative); Mucus,Urine Occasional /LPF (Occasional); Nitrite,Urine Negative (Negative); Protein,Urine Negative; RBC,Urine 1 /HPF (0-4); Squamous Epithelial Cell,Urine Occasional /HPF (0-10); Urine Appearance CLEAR (Clear); Urine Color Straw (Yellow); Urine Specific Gravity 1.005 (1.001-1.035); Urine Urobilinogen < 2.0 EU/DL (0.2-1.0); WBC,Urine 1 /HPF (0-6)
[2020-12-22] MEDS ORDERED: CALCIUM CARBONATE CHEW 500 MG TABLET PO PRN (12:15)
[2020-12-22] MEDS ORDERED: hydrALAZINE 20 MG/1 ML VIAL IV PRN (12:15)
[2020-12-22] MEDS ORDERED: DOCUSATE SODIUM 100 MG CAPSULE PO PRN (12:15)
[2020-12-22] MEDS ORDERED: DEXTROSE 50% 25 GM/50 ML VIAL IV PRN (12:15)
[2020-12-22] MEDS ORDERED: ALUMINUM/MAGNES/SIMETH MAX STR 30 ML UDCUP PO PRN (12:15)
[2020-12-22] MEDS ORDERED: GLUCAGON 1 MG VIAL IM PRN (12:15)
[2020-12-22] MEDS: ACETAMINOPHEN 325 MG TABLET PO PRN ×2 (16:32→20:19)
[2020-12-22] MEDS: DORZOLAMIDE 2% OPH SOLN 10 ML BOTTLE BOTH EYES SCH (20:18)
[2020-12-22] MEDS: POTASSIUM CHLORIDE 10 MEQ TABLET PO SCH (20:19)
[2020-12-22] MEDS: BRIMONIDINE 0.2% OPH SOLN 5 ML BOTTLE BOTH EYES SCH (20:19)
[2020-12-22] MEDS: VITAMIN E 400 UNIT CAPSULE PO SCH (20:19)
[2020-12-22] MEDS: METOPROLOL TARTRATE 50 MG TABLET PO SCH (20:20)
[2020-12-22] MEDS: LOSARTAN 50 MG TABLET PO SCH (20:20)
[2020-12-22] MEDS: APIXABAN 2.5 MG TABLET PO SCH (20:20)
[2020-12-22] MEDS: MULTIVITAMIN (INTRINSIC) CAPSULE PO SCH (20:20)
[2020-12-22] MEDS: LORazepam 0.5 MG TABLET PO SCH (20:20)
[2020-12-22] MEDS: ONDANSETRON 4 MG/2 ML VIAL IV PRN (20:21)
[2020-12-22] MEDS: ASCORBIC ACID 500 MG TABLET PO SCH (20:21)
[2020-12-22] MEDS: LATANOPROST 0.005% OPH SOLN 2.5 ML BOTTLE BOTH EYES SCH (21:18)
[2020-12-23 05:37] LABS: Basophils % 0.4 % (0.0-0.8); Eosinophils # 0.2 10*3/uL (0.0-0.87); Eosinophils % 2.3 % (0.00-10.9); Immature Granulocytes % 0.5 %; Immature Granulocytes Absolute 0.04 #; Lymphocytes # 1.6 10*3/uL (1.4-4.0); Lymphocytes % 21.6 % (21.3-54.2); Mean Corpuscular HGB Conc 32.4 GM/DL (32-36); Mean Corpuscular Volume 95.4 FL (87-102); Monocytes % 11.7 % (1.7-12.7); Neutrophils % 63.5 % (38.7-73.9); Platelet Count 190 T/CUMM (130-400); Red Blood Count 3.88 MC/CUMM (3.8-5.5); Red Cell Distribution Width 14.6 % (9.3-17.3); White Blood Count 7.3 T/CUMM (4-12)
[2020-12-23 05:59] LABS: Albumin 2.8 G/DL (3.4-5.0); Bilirubin,Total 0.5 MG/DL (0.2-1.0); Calcium 9.2 MG/DL (8.5-10.1); Osmolality,Calculated 283.3 MOS/KG (273-304); Total Protein 6.2 G/DL (6.4-8.2)
[2020-12-23] MEDS: METOPROLOL TARTRATE 50 MG TABLET PO SCH ×2 (08:48→20:18)
[2020-12-23] MEDS: FUROSEMIDE 40 MG TABLET PO SCH (08:49)
[2020-12-23] MEDS: LORazepam 0.5 MG TABLET PO SCH (08:49)
[2020-12-23] MEDS: POTASSIUM CHLORIDE 10 MEQ TABLET PO SCH ×2 (08:49→20:18)
[2020-12-23] MEDS: PANTOPRAZOLE 40 MG TABLET PO SCH (08:49)
[2020-12-23] MEDS: CHOLECALCIFEROL 1,000 UNIT TABLET PO SCH (08:49)
[2020-12-23] MEDS: PYRIDOXINE 100 MG TABLET PO SCH (08:49)
[2020-12-23] MEDS: ASPIRIN EC 81 MG TABLET PO SCH (08:49)
[2020-12-23] MEDS: APIXABAN 2.5 MG TABLET PO SCH ×2 (08:49→20:18)
[2020-12-23] MEDS: BRIMONIDINE 0.2% OPH SOLN 5 ML BOTTLE BOTH EYES SCH ×2 (08:50→20:19)
[2020-12-23] MEDS: DORZOLAMIDE 2% OPH SOLN 10 ML BOTTLE BOTH EYES SCH ×2 (08:50→20:19)
[2020-12-23] MEDS: ACETAMINOPHEN 325 MG TABLET PO PRN (08:56)
[2020-12-23] MEDS: ONDANSETRON 4 MG/2 ML VIAL IV PRN (08:57)
[2020-12-23] MEDS: ZINC GLUCONATE 50 MG TABLET PO SCH (11:18)
[2020-12-23] MEDS: LORazepam 0.5 MG TABLET PO PRN ×2 (16:15→20:25)
[2020-12-23] MEDS: LATANOPROST 0.005% OPH SOLN 2.5 ML BOTTLE BOTH EYES SCH (20:17)
[2020-12-23] MEDS: VITAMIN E 400 UNIT CAPSULE PO SCH (20:18)
[2020-12-23] MEDS: ASCORBIC ACID 500 MG TABLET PO SCH (20:18)
[2020-12-23] MEDS: MULTIVITAMIN (INTRINSIC) CAPSULE PO SCH (20:18)
[2020-12-23] MEDS: LOSARTAN 50 MG TABLET PO SCH (20:18)
[2020-12-24] MEDS: BRIMONIDINE 0.2% OPH SOLN 5 ML BOTTLE BOTH EYES SCH ×2 (08:28→20:34)
[2020-12-24] MEDS: DORZOLAMIDE 2% OPH SOLN 10 ML BOTTLE BOTH EYES SCH ×2 (08:28→20:34)
[2020-12-24] MEDS: METOPROLOL TARTRATE 50 MG TABLET PO SCH ×2 (08:29→20:29)
[2020-12-24] MEDS: POTASSIUM CHLORIDE 10 MEQ TABLET PO SCH ×2 (08:29→20:30)
[2020-12-24] MEDS: PANTOPRAZOLE 40 MG TABLET PO SCH (08:29)
[2020-12-24] MEDS: PYRIDOXINE 100 MG TABLET PO SCH (08:29)
[2020-12-24] MEDS: ASPIRIN EC 81 MG TABLET PO SCH (08:29)
[2020-12-24] MEDS: FUROSEMIDE 40 MG TABLET PO SCH (08:30)
[2020-12-24] MEDS: APIXABAN 2.5 MG TABLET PO SCH ×2 (08:30→20:28)
[2020-12-24] MEDS: CHOLECALCIFEROL 1,000 UNIT TABLET PO SCH (08:32)
[2020-12-24] MEDS: LORazepam 0.5 MG TABLET PO PRN ×2 (08:32→20:32)
[2020-12-24] MEDS: ZINC GLUCONATE 50 MG TABLET PO SCH (11:37)
[2020-12-24] MEDS: ONDANSETRON 4 MG/2 ML VIAL IV PRN (17:57)
[2020-12-24] MEDS: LOSARTAN 50 MG TABLET PO SCH (20:28)
[2020-12-24] MEDS: MULTIVITAMIN (INTRINSIC) CAPSULE PO SCH (20:30)
[2020-12-24] MEDS: ASCORBIC ACID 500 MG TABLET PO SCH (20:31)
[2020-12-24] MEDS: VITAMIN E 400 UNIT CAPSULE PO SCH (20:32)
[2020-12-24] MEDS: LATANOPROST 0.005% OPH SOLN 2.5 ML BOTTLE BOTH EYES SCH (20:34)
[2020-12-25] MEDS: ONDANSETRON 4 MG/2 ML VIAL IV PRN (07:37)
[2020-12-25] MEDS: LORazepam 0.5 MG TABLET PO PRN ×2 (07:40→22:05)
[2020-12-25] MEDS: PYRIDOXINE 100 MG TABLET PO SCH (09:03)
[2020-12-25] MEDS: ASPIRIN EC 81 MG TABLET PO SCH (09:03)
[2020-12-25] MEDS: METOPROLOL TARTRATE 50 MG TABLET PO SCH ×2 (09:04→20:08)
[2020-12-25] MEDS: APIXABAN 2.5 MG TABLET PO SCH ×2 (09:04→20:07)
[2020-12-25] MEDS: BRIMONIDINE 0.2% OPH SOLN 5 ML BOTTLE BOTH EYES SCH ×2 (09:05→20:04)
[2020-12-25] MEDS: CHOLECALCIFEROL 1,000 UNIT TABLET PO SCH (09:05)
[2020-12-25] MEDS: PANTOPRAZOLE 40 MG TABLET PO SCH (09:05)
[2020-12-25] MEDS: DORZOLAMIDE 2% OPH SOLN 10 ML BOTTLE BOTH EYES SCH ×2 (09:05→20:04)
[2020-12-25] MEDS: POTASSIUM CHLORIDE 10 MEQ TABLET PO SCH ×2 (09:05→20:07)
[2020-12-25] MEDS: FUROSEMIDE 40 MG TABLET PO SCH (09:05)
[2020-12-25 13:37] LABS: Bilirubin,Urine Negative (Negative); Blood, Urine Negative (Negative); Glucose,Urine (UA) Negative (Negative); Hyaline Casts,Urine 3 /LPF (0-3); Ketones,Urine Negative (Negative); Mucus,Urine Occasional /LPF (Occasional); Nitrite,Urine Negative (Negative); Protein,Urine Negative; RBC,Urine 2 /HPF (0-4); Squamous Epithelial Cell,Urine Occasional /HPF (0-10); Urine Appearance CLEAR (Clear); Urine Color Straw (Yellow); Urine Specific Gravity 1.006 (1.001-1.035); Urine Urobilinogen < 2.0 EU/DL (0.2-1.0)
[2020-12-25] MEDS: ZINC GLUCONATE 50 MG TABLET PO SCH (13:55)
[2020-12-25] MEDS: LOSARTAN 50 MG TABLET PO SCH (20:06)
[2020-12-25] MEDS: MULTIVITAMIN (INTRINSIC) CAPSULE PO SCH (20:08)
[2020-12-25] MEDS: VITAMIN E 400 UNIT CAPSULE PO SCH (20:09)
[2020-12-25] MEDS: ASCORBIC ACID 500 MG TABLET PO SCH (20:09)
[2020-12-25] MEDS: LATANOPROST 0.005% OPH SOLN 2.5 ML BOTTLE BOTH EYES SCH (20:13)
[2020-12-25] MEDS ORDERED: FLUoxetine 10 MG CAPSULE PO SCH (21:00)
[2020-12-25] MEDS ORDERED: ESCITALOPRAM 10 MG TABLET PO SCH (21:00)
[2020-12-25] MEDS ORDERED: QUEtiapine 25 MG TABLET PO SCH (21:00)
[2020-12-26] MEDS: POTASSIUM CHLORIDE 10 MEQ TABLET PO SCH ×2 (09:25→20:12)
[2020-12-26] MEDS: CHOLECALCIFEROL 1,000 UNIT TABLET PO SCH (09:26)
[2020-12-26] MEDS: PYRIDOXINE 100 MG TABLET PO SCH (09:27)
[2020-12-26] MEDS: PANTOPRAZOLE 40 MG TABLET PO SCH (09:27)
[2020-12-26] MEDS: METOPROLOL TARTRATE 50 MG TABLET PO SCH ×2 (09:28→20:13)
[2020-12-26] MEDS: APIXABAN 2.5 MG TABLET PO SCH ×2 (09:28→20:12)
[2020-12-26] MEDS: ASPIRIN EC 81 MG TABLET PO SCH (09:29)
[2020-12-26] MEDS: FUROSEMIDE 40 MG TABLET PO SCH (09:29)
[2020-12-26] MEDS: DORZOLAMIDE 2% OPH SOLN 10 ML BOTTLE BOTH EYES SCH ×2 (09:33→20:12)
[2020-12-26] MEDS: BRIMONIDINE 0.2% OPH SOLN 5 ML BOTTLE BOTH EYES SCH ×2 (09:33→20:12)
[2020-12-26] MEDS: LORazepam 0.5 MG TABLET PO PRN ×2 (10:27→20:15)
[2020-12-26] MEDS: ONDANSETRON 4 MG/2 ML VIAL IV PRN (11:28)
[2020-12-26] MEDS: ZINC GLUCONATE 50 MG TABLET PO SCH (13:53)
[2020-12-26] MEDS: busPIRone 5 MG TABLET PO SCH (20:10)
[2020-12-26] MEDS: LOSARTAN 50 MG TABLET PO SCH (20:11)
[2020-12-26] MEDS: ESCITALOPRAM 10 MG TABLET PO SCH (20:13)
[2020-12-26] MEDS: MULTIVITAMIN (INTRINSIC) CAPSULE PO SCH (20:14)
[2020-12-26] MEDS: QUEtiapine 25 MG TABLET PO SCH (20:14)
[2020-12-26] MEDS: ASCORBIC ACID 500 MG TABLET PO SCH (20:14)
[2020-12-26] MEDS: VITAMIN E 400 UNIT CAPSULE PO SCH (20:15)
[2020-12-26] MEDS: LATANOPROST 0.005% OPH SOLN 2.5 ML BOTTLE BOTH EYES SCH (20:18)
[2020-12-27] MEDS: ONDANSETRON 4 MG/2 ML VIAL IV PRN (07:37)
[2020-12-27] MEDS: LORazepam 0.5 MG TABLET PO PRN ×2 (07:37→20:29)
[2020-12-27] MEDS: BRIMONIDINE 0.2% OPH SOLN 5 ML BOTTLE BOTH EYES SCH ×2 (08:55→20:28)
[2020-12-27] MEDS: DORZOLAMIDE 2% OPH SOLN 10 ML BOTTLE BOTH EYES SCH ×2 (08:55→20:28)
[2020-12-27] MEDS: APIXABAN 2.5 MG TABLET PO SCH ×2 (09:00→20:30)
[2020-12-27] MEDS: CHOLECALCIFEROL 1,000 UNIT TABLET PO SCH (09:00)
[2020-12-27] MEDS: PANTOPRAZOLE 40 MG TABLET PO SCH (09:00)
[2020-12-27] MEDS: ASPIRIN EC 81 MG TABLET PO SCH (09:00)
[2020-12-27] MEDS: busPIRone 5 MG TABLET PO SCH ×2 (09:00→20:29)
[2020-12-27] MEDS: POTASSIUM CHLORIDE 10 MEQ TABLET PO SCH ×2 (09:00→20:31)
[2020-12-27] MEDS: PYRIDOXINE 100 MG TABLET PO SCH (09:00)
[2020-12-27] MEDS: FUROSEMIDE 40 MG TABLET PO SCH (09:00)
[2020-12-27] MEDS: METOPROLOL TARTRATE 50 MG TABLET PO SCH ×2 (09:00→20:29)
[2020-12-27] MEDS: ZINC GLUCONATE 50 MG TABLET PO SCH (13:24)
[2020-12-27] MEDS: VITAMIN E 400 UNIT CAPSULE PO SCH (20:29)
[2020-12-27] MEDS: QUEtiapine 25 MG TABLET PO SCH (20:29)
[2020-12-27] MEDS: ASCORBIC ACID 500 MG TABLET PO SCH (20:29)
[2020-12-27] MEDS: MULTIVITAMIN (INTRINSIC) CAPSULE PO SCH (20:30)
[2020-12-27] MEDS: LOSARTAN 50 MG TABLET PO SCH (20:30)
[2020-12-27] MEDS: ESCITALOPRAM 10 MG TABLET PO SCH (20:30)
[2020-12-27] MEDS: LATANOPROST 0.005% OPH SOLN 2.5 ML BOTTLE BOTH EYES SCH (20:39)
[2020-12-28] MEDS: ONDANSETRON 4 MG/2 ML VIAL IV PRN (08:06)
[2020-12-28] MEDS: METOPROLOL TARTRATE 50 MG TABLET PO SCH (09:02)
[2020-12-28] MEDS: CHOLECALCIFEROL 1,000 UNIT TABLET PO SCH (09:04)
[2020-12-28] MEDS: PYRIDOXINE 100 MG TABLET PO SCH (09:04)
[2020-12-28] MEDS: ASPIRIN EC 81 MG TABLET PO SCH (09:04)
[2020-12-28] MEDS: busPIRone 5 MG TABLET PO SCH (09:05)
[2020-12-28] MEDS: FUROSEMIDE 40 MG TABLET PO SCH (09:05)
[2020-12-28] MEDS: PANTOPRAZOLE 40 MG TABLET PO SCH (09:05)
[2020-12-28] MEDS: APIXABAN 2.5 MG TABLET PO SCH (09:06)
[2020-12-28] MEDS: POTASSIUM CHLORIDE 10 MEQ TABLET PO SCH (09:08)
[2020-12-28] MEDS: BRIMONIDINE 0.2% OPH SOLN 5 ML BOTTLE BOTH EYES SCH (09:11)
[2020-12-28] MEDS: DORZOLAMIDE 2% OPH SOLN 10 ML BOTTLE BOTH EYES SCH (09:11)
[2020-12-28] MEDS: LORazepam 0.5 MG TABLET PO PRN (09:30)
[2020-12-28] MEDS ORDERED: ONDANSETRON 4 MG TABLET PO PRN (11:33)
[2020-12-28] MEDS: ZINC GLUCONATE 50 MG TABLET PO SCH (12:05)
[2020-12-28 12:14] VITALS: BP 123/73
== END 2020-12-28 18:00 | disposition home or self-care (01) | DRG 948 ==
LOC: EDUNIT# → EDBD → N.EDINP 09:41 → N.ED 09:41 → SUATTDRO 12:32 → N.4E 12:43 → SUATTDRO 12-24 11:32
PROVIDERS: ADMIT Internal Medicine; ATTEND Hospitalist

== ENCOUNTER 2021-01-26 18:32 | Inpatient (IN) ==
[2021-01-26 19:28] LABS: Basophils % 0.2 % (0.0-0.8); Eosinophils % 0.3 % (0.00-10.9); Hematocrit 36.8 VOL% (35.7-47.0); Hemoglobin 11.8 GM/DL (12.0-16.0); Immature Granulocytes % 0.4 %; Immature Granulocytes Absolute 0.04 #; Lymphocytes # 1.3 10*3/uL (1.4-4.0); Lymphocytes % 12.7 % (21.3-54.2); Mean Corpuscular HGB Conc 32.1 GM/DL (32-36); Mean Corpuscular Volume 95.6 FL (87-102); Mean Platelet Volume 10.7 FL (9.6-12.0); Monocytes % 9.8 % (1.7-12.7); Neutrophils % 76.6 % (38.7-73.9); Platelet Count 198 T/CUMM (130-400); Red Blood Count 3.85 MC/CUMM (3.8-5.5); Red Cell Distribution Width 13.8 % (9.3-17.3); White Blood Count 10.2 T/CUMM (4-12)
[2021-01-26 19:49] LABS: Albumin 2.9 G/DL (3.4-5.0); Bilirubin,Total 0.7 MG/DL (0.2-1.0); Calcium 8.7 MG/DL (8.5-10.1); Osmolality,Calculated 281.5 MOS/KG (273-304); Potassium 3.2 MMOL/L (3.5-5.1); Total Protein 6.4 G/DL (6.4-8.2)
[2021-01-26] MEDS: POTASSIUM CHLORIDE 20 MEQ TABLET PO PRN (23:15)
[2021-01-26] MEDS ORDERED: LORazepam 1 MG TABLET PO STA (23:42)
[2021-01-26] MEDS ORDERED: LORazepam 1 MG TABLET ONE (23:45)
[2021-01-27] MEDS: POTASSIUM CHLORIDE 20 MEQ TABLET PO PRN (01:23)
[2021-01-27] MEDS ORDERED: POTASSIUM CHLORIDE 20 MEQ/15 ML UDCUP PO PRN (02:17)
[2021-01-27] MEDS ORDERED: POTASSIUM CHLORIDE 20 MEQ TABLET PO PRN (03:49)
[2021-01-27] MEDS: FUROSEMIDE 40 MG TABLET PO SCH (09:06)
[2021-01-27] MEDS: APIXABAN 2.5 MG TABLET PO SCH ×2 (09:06→21:45)
[2021-01-27] MEDS: LORazepam 0.5 MG TABLET PO SCH ×2 (09:06→21:45)
[2021-01-27] MEDS: METOPROLOL TARTRATE 50 MG TABLET PO SCH ×2 (09:06→21:45)
[2021-01-27] MEDS: LIDOCAINE 5% PATCH TRANSDERM SCH (09:06)
[2021-01-27] MEDS: POTASSIUM CHLORIDE 10 MEQ TABLET PO SCH ×2 (09:07→21:44)
[2021-01-27] MEDS: DORZOLAMIDE 2% OPH SOLN 10 ML BOTTLE BOTH EYES SCH ×2 (09:08→21:53)
[2021-01-27] MEDS: BRIMONIDINE 0.2% OPH SOLN 5 ML BOTTLE BOTH EYES SCH ×2 (09:08→21:53)
[2021-01-27] MEDS: ASPIRIN EC 81 MG TABLET PO SCH (09:08)
[2021-01-27] MEDS: LOSARTAN 50 MG TABLET PO SCH (21:45)
[2021-01-27] MEDS: MULTIVITAMIN (INTRINSIC) CAPSULE PO SCH (21:45)
[2021-01-27] MEDS: LATANOPROST 0.005% OPH SOLN 2.5 ML BOTTLE BOTH EYES SCH (21:46)
[2021-01-28] MEDS: POTASSIUM CHLORIDE 10 MEQ TABLET PO SCH ×2 (08:13→20:48)
[2021-01-28] MEDS: LORazepam 0.5 MG TABLET PO SCH ×2 (08:13→20:46)
[2021-01-28] MEDS: ASPIRIN EC 81 MG TABLET PO SCH (08:13)
[2021-01-28] MEDS: FUROSEMIDE 40 MG TABLET PO SCH (08:13)
[2021-01-28] MEDS: BRIMONIDINE 0.2% OPH SOLN 5 ML BOTTLE BOTH EYES SCH ×2 (08:14→20:50)
[2021-01-28] MEDS: APIXABAN 2.5 MG TABLET PO SCH ×2 (08:14→20:47)
[2021-01-28] MEDS: DORZOLAMIDE 2% OPH SOLN 10 ML BOTTLE BOTH EYES SCH ×2 (08:14→20:45)
[2021-01-28] MEDS: METOPROLOL TARTRATE 50 MG TABLET PO SCH ×2 (08:14→20:48)
[2021-01-28] MEDS: LIDOCAINE 5% PATCH TRANSDERM SCH (08:14)
[2021-01-28] MEDS: LATANOPROST 0.005% OPH SOLN 2.5 ML BOTTLE BOTH EYES SCH (20:45)
[2021-01-28] MEDS: MULTIVITAMIN (INTRINSIC) CAPSULE PO SCH (20:48)
[2021-01-28] MEDS: LOSARTAN 50 MG TABLET PO SCH (20:48)
[2021-01-29 06:37] LABS: Basophils % 0.5 % (0.0-0.8); Eosinophils # 0.1 10*3/uL (0.0-0.87); Eosinophils % 1.5 % (0.00-10.9); Hematocrit 36.8 VOL% (35.7-47.0); Hemoglobin 11.7 GM/DL (12.0-16.0); Immature Granulocytes % 0.5 %; Immature Granulocytes Absolute 0.03 #; Lymphocytes # 1.2 10*3/uL (1.4-4.0); Lymphocytes % 20.2 % (21.3-54.2); Mean Corpuscular HGB Conc 31.8 GM/DL (32-36); Mean Corpuscular Volume 97.9 FL (87-102); Mean Platelet Volume 11.2 FL (9.6-12.0); Monocytes % 9.7 % (1.7-12.7); Neutrophils % 67.6 % (38.7-73.9); Platelet Count 216 T/CUMM (130-400); Red Blood Count 3.76 MC/CUMM (3.8-5.5); Red Cell Distribution Width 13.6 % (9.3-17.3)
[2021-01-29 07:00] LABS: Calcium 8.9 MG/DL (8.5-10.1); Osmolality,Calculated 285.1 MOS/KG (273-304); Potassium 3.8 MMOL/L (3.5-5.1)
[2021-01-29] MEDS: ASPIRIN EC 81 MG TABLET PO SCH (08:01)
[2021-01-29] MEDS: POTASSIUM CHLORIDE 10 MEQ TABLET PO SCH ×2 (08:01→21:48)
[2021-01-29] MEDS: METOPROLOL TARTRATE 50 MG TABLET PO SCH ×2 (08:02→21:49)
[2021-01-29] MEDS: APIXABAN 2.5 MG TABLET PO SCH ×2 (08:02→21:48)
[2021-01-29] MEDS: FUROSEMIDE 40 MG TABLET PO SCH (08:02)
[2021-01-29] MEDS: LIDOCAINE 5% PATCH TRANSDERM SCH (08:02)
[2021-01-29] MEDS: DORZOLAMIDE 2% OPH SOLN 10 ML BOTTLE BOTH EYES SCH ×2 (08:03→21:49)
[2021-01-29] MEDS: BRIMONIDINE 0.2% OPH SOLN 5 ML BOTTLE BOTH EYES SCH ×2 (08:03→21:49)
[2021-01-29] MEDS: LORazepam 0.5 MG TABLET PO SCH ×2 (08:44→21:48)
[2021-01-29] MEDS ORDERED: MAGNESIUM HYDROXIDE SUSP 30 ML UDCUP PO PRN (11:36)
[2021-01-29] MEDS: MULTIVITAMIN (INTRINSIC) CAPSULE PO SCH (21:48)
[2021-01-29] MEDS: LATANOPROST 0.005% OPH SOLN 2.5 ML BOTTLE BOTH EYES SCH (21:49)
[2021-01-29] MEDS: LOSARTAN 50 MG TABLET PO SCH (21:49)
[2021-01-30 08:50] LABS: Basophils % 0.3 % (0.0-0.8); Eosinophils # 0.1 10*3/uL (0.0-0.87); Eosinophils % 1.4 % (0.00-10.9); Hematocrit 40.8 VOL% (35.7-47.0); Hemoglobin 12.8 GM/DL (12.0-16.0); Immature Granulocytes % 0.4 %; Immature Granulocytes Absolute 0.03 #; Lymphocytes # 1.4 10*3/uL (1.4-4.0); Lymphocytes % 20.5 % (21.3-54.2); Mean Corpuscular HGB Conc 31.4 GM/DL (32-36); Mean Corpuscular Volume 96.7 FL (87-102); Mean Platelet Volume 10.5 FL (9.6-12.0); Monocytes % 8.2 % (1.7-12.7); Neutrophils % 69.2 % (38.7-73.9); Platelet Count 242 T/CUMM (130-400); Red Blood Count 4.22 MC/CUMM (3.8-5.5); Red Cell Distribution Width 13.6 % (9.3-17.3)
[2021-01-30] MEDS: FUROSEMIDE 40 MG TABLET PO SCH (09:04)
[2021-01-30] MEDS: ASPIRIN EC 81 MG TABLET PO SCH (09:04)
[2021-01-30] MEDS: APIXABAN 2.5 MG TABLET PO SCH ×2 (09:04→21:48)
[2021-01-30] MEDS: PYRIDOXINE 100 MG TABLET PO SCH (09:04)
[2021-01-30] MEDS: LORazepam 0.5 MG TABLET PO SCH ×2 (09:04→21:48)
[2021-01-30] MEDS: LIDOCAINE 5% PATCH TRANSDERM SCH (09:04)
[2021-01-30] MEDS: POTASSIUM CHLORIDE 10 MEQ TABLET PO SCH ×2 (09:04→21:48)
[2021-01-30] MEDS: BRIMONIDINE 0.2% OPH SOLN 5 ML BOTTLE BOTH EYES SCH ×2 (09:08→21:49)
[2021-01-30] MEDS: DORZOLAMIDE 2% OPH SOLN 10 ML BOTTLE BOTH EYES SCH ×2 (09:08→21:49)
[2021-01-30 09:13] LABS: Calcium 9.5 MG/DL (8.5-10.1); Osmolality,Calculated 284.3 MOS/KG (273-304); Potassium 3.7 MMOL/L (3.5-5.1)
[2021-01-30] MEDS: METOPROLOL TARTRATE 50 MG TABLET PO SCH ×2 (09:35→21:49)
[2021-01-30] MEDS: ZINC GLUCONATE 50 MG TABLET PO SCH (11:53)
[2021-01-30] MEDS: CHOLECALCIFEROL 1,000 UNIT TABLET PO SCH (11:53)
[2021-01-30] MEDS: ASCORBIC ACID 500 MG TABLET PO SCH (11:53)
[2021-01-30] MEDS: VITAMIN E 400 UNIT CAPSULE PO SCH (21:48)
[2021-01-30] MEDS: LOSARTAN 50 MG TABLET PO SCH (21:48)
[2021-01-30] MEDS: CITALOPRAM 20 MG TABLET PO SCH (21:48)
[2021-01-30] MEDS: MULTIVITAMIN (INTRINSIC) CAPSULE PO SCH (21:49)
[2021-01-30] MEDS: LATANOPROST 0.005% OPH SOLN 2.5 ML BOTTLE BOTH EYES SCH (21:50)
[2021-01-31] MEDS: ONDANSETRON 4 MG/2 ML VIAL IV PRN (07:30)
[2021-01-31] MEDS: ASPIRIN EC 81 MG TABLET PO SCH (08:15)
[2021-01-31] MEDS: METOPROLOL TARTRATE 50 MG TABLET PO SCH ×2 (08:15→21:08)
[2021-01-31] MEDS: PYRIDOXINE 100 MG TABLET PO SCH (08:16)
[2021-01-31] MEDS: POTASSIUM CHLORIDE 10 MEQ TABLET PO SCH ×2 (08:16→21:12)
[2021-01-31] MEDS: LORazepam 0.5 MG TABLET PO SCH ×2 (08:17→21:12)
[2021-01-31] MEDS: PANTOPRAZOLE 40 MG TABLET PO SCH (08:17)
[2021-01-31] MEDS: FUROSEMIDE 40 MG TABLET PO SCH (08:17)
[2021-01-31] MEDS: APIXABAN 2.5 MG TABLET PO SCH ×2 (08:18→21:08)
[2021-01-31] MEDS: DORZOLAMIDE 2% OPH SOLN 10 ML BOTTLE BOTH EYES SCH ×2 (08:19→21:21)
[2021-01-31] MEDS: BRIMONIDINE 0.2% OPH SOLN 5 ML BOTTLE BOTH EYES SCH ×2 (08:19→21:21)
[2021-01-31] MEDS: LIDOCAINE 5% PATCH TRANSDERM SCH (11:02)
[2021-01-31] MEDS: CHOLECALCIFEROL 1,000 UNIT TABLET PO SCH (11:38)
[2021-01-31] MEDS: ZINC GLUCONATE 50 MG TABLET PO SCH (11:38)
[2021-01-31] MEDS: ASCORBIC ACID 500 MG TABLET PO SCH (11:38)
[2021-01-31] MEDS ORDERED: PHENYLEPH/MINERAL OIL/PETROLAT 57 GM TUBE TOP PRN (12:14)
[2021-01-31] MEDS: CITALOPRAM 20 MG TABLET PO SCH (21:10)
[2021-01-31] MEDS: MULTIVITAMIN (INTRINSIC) CAPSULE PO SCH (21:12)
[2021-01-31] MEDS: LATANOPROST 0.005% OPH SOLN 2.5 ML BOTTLE BOTH EYES SCH (21:12)
[2021-01-31] MEDS: VITAMIN E 400 UNIT CAPSULE PO SCH (21:12)
[2021-01-31] MEDS: LOSARTAN 50 MG TABLET PO SCH (21:14)
[2021-02-01] MEDS: ONDANSETRON 4 MG/2 ML VIAL IV PRN (04:22)
[2021-02-01] MEDS: BRIMONIDINE 0.2% OPH SOLN 5 ML BOTTLE BOTH EYES SCH (09:34)
[2021-02-01] MEDS: DORZOLAMIDE 2% OPH SOLN 10 ML BOTTLE BOTH EYES SCH (09:34)
[2021-02-01] MEDS: LORazepam 0.5 MG TABLET PO SCH (09:40)
[2021-02-01] MEDS: APIXABAN 2.5 MG TABLET PO SCH (09:40)
[2021-02-01] MEDS: METOPROLOL TARTRATE 50 MG TABLET PO SCH (09:40)
[2021-02-01] MEDS: FUROSEMIDE 40 MG TABLET PO SCH (09:40)
[2021-02-01] MEDS: PANTOPRAZOLE 40 MG TABLET PO SCH (09:40)
[2021-02-01] MEDS: ASPIRIN EC 81 MG TABLET PO SCH (09:40)
[2021-02-01] MEDS: POTASSIUM CHLORIDE 10 MEQ TABLET PO SCH (09:40)
[2021-02-01] MEDS: PYRIDOXINE 100 MG TABLET PO SCH (09:40)
[2021-02-01] MEDS: LIDOCAINE 5% PATCH TRANSDERM SCH (10:51)
[2021-02-01] MEDS: CHOLECALCIFEROL 1,000 UNIT TABLET PO SCH (13:24)
[2021-02-01] MEDS: ASCORBIC ACID 500 MG TABLET PO SCH (13:24)
[2021-02-01] MEDS: ZINC GLUCONATE 50 MG TABLET PO SCH (13:24)
[2021-02-01 15:50] VITALS: BP 152/90
== END 2021-02-01 17:00 | disposition swing bed (61) | DRG 552 ==
LOC: EDBD → EDUNIT# → N.EDINP 18:32 → N.ED 18:32 → SUATTDRO 22:38 → N.EDINP 23:51 → N.3E 23:57
PROVIDERS: ADMIT Internal Medicine; ATTEND Internal Medicine

== ENCOUNTER 2021-08-02 02:20 | Inpatient (IN) ==
[2021-08-02] MEDS ORDERED: FUROSEMIDE 100 MG/10 ML VIAL IV STA (03:16)
[2021-08-02] MEDS ORDERED: ONDANSETRON 4 MG/2 ML VIAL IV STA (03:16)
[2021-08-02] MEDS ORDERED: ALBUTEROL/IPRATROPIUM 3 ML NEB RESP TX STA (03:16)
[2021-08-02] MEDS ORDERED: LORazepam 2 MG/1 ML VIAL IV STA ×2 (03:16→05:59)
[2021-08-02] MEDS ORDERED: hydrALAZINE 20 MG/1 ML VIAL IV STA (03:26)
[2021-08-02 04:23] LABS: Basophils % 0.3 % (0.0-0.8); Eosinophils # 0.1 10*3/uL (0.0-0.87); Eosinophils % 0.8 % (0.00-10.9); Immature Granulocytes % 0.4 %; Immature Granulocytes Absolute 0.03 #; Lymphocytes # 1.5 10*3/uL (1.4-4.0); Lymphocytes % 19.7 % (21.3-54.2); Mean Corpuscular HGB Conc 30.8 GM/DL (32-36); Mean Corpuscular Volume 99.2 FL (87-102); Monocytes % 8.5 % (1.7-12.7); Neutrophils % 70.3 % (38.7-73.9); Platelet Count 144 T/CUMM (130-400); Red Blood Count 3.93 MC/CUMM (3.8-5.5); Red Cell Distribution Width 13.4 % (9.3-17.3); White Blood Count 7.4 T/CUMM (4-12)
[2021-08-02 04:30] LABS: PT Patient Result 11.5 SECS (10.5-12.0)
[2021-08-02 04:46] LABS: Bilirubin,Total 0.7 MG/DL (0.20-1.00); Calcium 8.8 MG/DL (8.5-10.1); Osmolality,Calculated 285.3 MOS/KG (273-304); Potassium 3.9 MMOL/L (3.5-5.1); Total Protein 6.3 G/DL (6.4-8.2)
[2021-08-02 05:06] LABS: Bacteria,Urine Occasional /HPF (Few); Bilirubin,Urine Negative (Negative); Blood, Urine Moderate mg/dL (Negative); Glucose,Urine (UA) Negative (Negative); Ketones,Urine Negative (Negative); Mucus,Urine Occasional /LPF (Occasional); Nitrite,Urine Negative (Negative); Protein,Urine Negative; RBC,Urine 63 /HPF (0-4); Squamous Epithelial Cell,Urine Occasional /HPF (0-10); Urine Appearance CLEAR (Clear); Urine Color Straw (Yellow); Urine Specific Gravity 1.006 (1.001-1.035); Urine Urobilinogen < 2.0 EU/DL (0.2-1.0)
[2021-08-02] MEDS ORDERED: GLUCAGON 1 MG VIAL IM PRN (06:14)
[2021-08-02] MEDS ORDERED: DEXTROSE 50% 25 GM/50 ML VIAL IV PRN (06:14)
[2021-08-02] MEDS ORDERED: SIMETHICONE CHEW 125 MG TABLET PO PRN (06:14)
[2021-08-02] MEDS ORDERED: hydrALAZINE 20 MG/1 ML VIAL IV PRN (06:14)
[2021-08-02] MEDS: ALBUTEROL 2.5 MG/3 ML NEB RESP TX SCH ×3 (09:05→19:45)
[2021-08-02] MEDS: DOCUSATE SODIUM 100 MG CAPSULE PO SCH ×2 (11:34→20:21)
[2021-08-02] MEDS: LORazepam 1 MG TABLET PO SCH ×2 (15:16→20:20)
[2021-08-02] MEDS ORDERED: PANTOPRAZOLE 40 MG TABLET PO SCH (19:00)
[2021-08-02] MEDS: METOPROLOL TARTRATE 25 MG TABLET PO SCH (20:20)
[2021-08-02] MEDS: PANTOPRAZOLE 40 MG TABLET PO SCH (20:20)
[2021-08-02] MEDS: LOSARTAN 50 MG TABLET PO SCH (20:21)
[2021-08-02] MEDS ORDERED: LORazepam 0.5 MG TABLET PO SCH (21:00)
[2021-08-03] MEDS: ONDANSETRON 4 MG/2 ML VIAL IV PRN ×2 (00:21→04:55)
[2021-08-03] MEDS: APIXABAN 2.5 MG TABLET PO SCH ×2 (01:52→09:00)
[2021-08-03] MEDS: ALBUTEROL 2.5 MG/3 ML NEB RESP TX SCH ×4 (01:55→20:40)
[2021-08-03 06:36] LABS: Basophils % 0.4 % (0.0-0.8); Eosinophils # 0.1 10*3/uL (0.0-0.87); Eosinophils % 1.5 % (0.00-10.9); Hematocrit 38.7 VOL% (35.7-47.0); Hemoglobin 12.7 GM/DL (12.0-16.0); Immature Granulocytes % 0.5 %; Immature Granulocytes Absolute 0.04 #; Lymphocytes # 1.5 10*3/uL (1.4-4.0); Lymphocytes % 18.9 % (21.3-54.2); Mean Corpuscular HGB Conc 32.8 GM/DL (32-36); Mean Corpuscular Volume 97.2 FL (87-102); Mean Platelet Volume 11.8 FL (9.6-12.0); Monocytes % 10.7 % (1.7-12.7); Platelet Count 146 T/CUMM (130-400); Red Blood Count 3.98 MC/CUMM (3.8-5.5); Red Cell Distribution Width 13.7 % (9.3-17.3); White Blood Count 7.8 T/CUMM (4-12)
[2021-08-03 06:54] LABS: Calcium 8.7 MG/DL (8.5-10.1); Osmolality,Calculated 283.3 MOS/KG (273-304); Potassium 3.1 MMOL/L (3.5-5.1)
[2021-08-03] MEDS: ASPIRIN EC 81 MG TABLET PO SCH (08:54)
[2021-08-03] MEDS: DOCUSATE SODIUM 100 MG CAPSULE PO SCH ×2 (08:55→20:50)
[2021-08-03] MEDS: LORazepam 1 MG TABLET PO SCH ×3 (08:55→20:51)
[2021-08-03] MEDS: METOPROLOL TARTRATE 25 MG TABLET PO SCH ×2 (08:59→20:51)
[2021-08-03] MEDS: FUROSEMIDE 40 MG/4 ML VIAL IV SCH (10:58)
[2021-08-03] MEDS: ACETAMINOPHEN 325 MG TABLET PO PRN (16:45)
[2021-08-03] MEDS: POTASSIUM CHLORIDE 20 MEQ TABLET PO PRN (20:51)
[2021-08-03] MEDS: LOSARTAN 50 MG TABLET PO SCH (20:51)
[2021-08-03] MEDS: PANTOPRAZOLE 40 MG TABLET PO SCH (20:51)
[2021-08-04] MEDS: ALBUTEROL 2.5 MG/3 ML NEB RESP TX SCH ×4 (01:06→19:43)
[2021-08-04] MEDS: ONDANSETRON 4 MG/2 ML VIAL IV PRN (05:42)
[2021-08-04 05:53] LABS: Basophils % 0.4 % (0.0-0.8); Eosinophils # 0.2 10*3/uL (0.0-0.87); Eosinophils % 2.8 % (0.00-10.9); Hematocrit 40.8 VOL% (35.7-47.0); Hemoglobin 12.9 GM/DL (12.0-16.0); Immature Granulocytes % 0.6 %; Immature Granulocytes Absolute 0.04 #; Lymphocytes # 1.5 10*3/uL (1.4-4.0); Lymphocytes % 21.1 % (21.3-54.2); Mean Corpuscular HGB Conc 31.6 GM/DL (32-36); Mean Platelet Volume 10.6 FL (9.6-12.0); Monocytes % 10.1 % (1.7-12.7); Platelet Count 155 T/CUMM (130-400); Red Blood Count 4.25 MC/CUMM (3.8-5.5); Red Cell Distribution Width 13.6 % (9.3-17.3); White Blood Count 7.1 T/CUMM (4-12)
[2021-08-04 06:17] LABS: Osmolality,Calculated 280.5 MOS/KG (273-304); Potassium 3.6 MMOL/L (3.5-5.1)
[2021-08-04] MEDS: FUROSEMIDE 40 MG/4 ML VIAL IV SCH (08:58)
[2021-08-04] MEDS: METOPROLOL TARTRATE 25 MG TABLET PO SCH ×2 (08:59→20:17)
[2021-08-04] MEDS: ASPIRIN EC 81 MG TABLET PO SCH (08:59)
[2021-08-04] MEDS: LORazepam 1 MG TABLET PO SCH ×3 (08:59→20:17)
[2021-08-04] MEDS: DOCUSATE SODIUM 100 MG CAPSULE PO SCH ×2 (08:59→20:17)
[2021-08-04] MEDS ORDERED: ALBUTEROL 2.5 MG/3 ML NEB RESP TX PRN (10:47)
[2021-08-04] MEDS ORDERED: diphenhydrAMINE 50 MG/1 ML VIAL IV ONE (15:40)
[2021-08-04] MEDS ORDERED: diphenhydrAMINE 50 MG/1 ML VIAL ONE (15:44)
[2021-08-04] MEDS ORDERED: LORazepam 2 MG/1 ML VIAL IM PRN (17:07)
[2021-08-04] MEDS: LORazepam 2 MG/1 ML VIAL IV PRN (18:10)
[2021-08-04] MEDS ORDERED: MORPHINE 2 MG/1 ML SYRINGE IV ONE (18:36)
[2021-08-04] MEDS: PANTOPRAZOLE 40 MG TABLET PO SCH (20:17)
[2021-08-04] MEDS: LOSARTAN 50 MG TABLET PO SCH (20:17)
[2021-08-05] MEDS: ALBUTEROL 2.5 MG/3 ML NEB RESP TX SCH ×4 (00:47→20:22)
[2021-08-05 06:08] LABS: Basophils % 0.2 % (0.0-0.8); Eosinophils % 0.2 % (0.00-10.9); Hematocrit 41.8 VOL% (35.7-47.0); Hemoglobin 13.3 GM/DL (12.0-16.0); Immature Granulocytes % 0.3 %; Immature Granulocytes Absolute 0.03 #; Lymphocytes # 1.2 10*3/uL (1.4-4.0); Lymphocytes % 11.8 % (21.3-54.2); Mean Corpuscular HGB Conc 31.8 GM/DL (32-36); Mean Corpuscular Volume 97.7 FL (87-102); Mean Platelet Volume 10.8 FL (9.6-12.0); Monocytes % 8.2 % (1.7-12.7); Neutrophils % 79.3 % (38.7-73.9); Platelet Count 167 T/CUMM (130-400); Red Blood Count 4.28 MC/CUMM (3.8-5.5); Red Cell Distribution Width 13.7 % (9.3-17.3); White Blood Count 10.3 T/CUMM (4-12)
[2021-08-05 06:17] LABS: Osmolality,Calculated 277.8 MOS/KG (273-304); Potassium 3.3 MMOL/L (3.5-5.1)
[2021-08-05] MEDS: POTASSIUM CHLORIDE 20 MEQ TABLET PO PRN ×3 (06:29→14:11)
[2021-08-05] MEDS: FUROSEMIDE 40 MG/4 ML VIAL IV SCH (09:23)
[2021-08-05] MEDS: ASPIRIN EC 81 MG TABLET PO SCH (09:23)
[2021-08-05] MEDS: METOPROLOL TARTRATE 25 MG TABLET PO SCH ×2 (09:23→21:49)
[2021-08-05] MEDS: DOCUSATE SODIUM 100 MG CAPSULE PO SCH ×2 (09:23→21:49)
[2021-08-05] MEDS: LORazepam 1 MG TABLET PO SCH ×3 (09:29→21:48)
[2021-08-05] MEDS: LEVOFLOXACIN INJ 500 MG/100 ML PREMIX IV SCH (11:51)
[2021-08-05] MEDS: ONDANSETRON 4 MG/2 ML VIAL IV PRN (14:16)
[2021-08-05] MEDS: PANTOPRAZOLE 40 MG TABLET PO SCH (21:49)
[2021-08-05] MEDS: MULTIVITAMIN (INTRINSIC) CAPSULE PO SCH (21:49)
[2021-08-05] MEDS: LOSARTAN 50 MG TABLET PO SCH (21:49)
[2021-08-05] MEDS: POTASSIUM CHLORIDE 10 MEQ TABLET PO SCH (21:49)
[2021-08-06] MEDS: ONDANSETRON 4 MG/2 ML VIAL IV PRN ×3 (00:01→16:33)
[2021-08-06] MEDS: ALBUTEROL 2.5 MG/3 ML NEB RESP TX SCH ×4 (01:04→20:15)
[2021-08-06] MEDS ORDERED: ALUM/MAG/SIMETH/LIDO VISC 1:1 30 ML BOTTLE PO ONE (01:42)
[2021-08-06] MEDS ORDERED: MORPHINE 2 MG/1 ML SYRINGE IV ONE (01:43)
[2021-08-06 06:02] LABS: Basophils % 0.2 % (0.0-0.8); Eosinophils % 0.1 % (0.00-10.9); Hemoglobin 12.5 GM/DL (12.0-16.0); Immature Granulocytes % 0.5 %; Immature Granulocytes Absolute 0.07 #; Lymphocytes # 0.8 10*3/uL (1.4-4.0); Lymphocytes % 6.1 % (21.3-54.2); Mean Corpuscular HGB Conc 32.1 GM/DL (32-36); Mean Corpuscular Volume 95.4 FL (87-102); Mean Platelet Volume 10.9 FL (9.6-12.0); Monocytes % 7.4 % (1.7-12.7); Neutrophils % 85.7 % (38.7-73.9); Platelet Count 163 T/CUMM (130-400); Red Blood Count 4.09 MC/CUMM (3.8-5.5); Red Cell Distribution Width 13.8 % (9.3-17.3); White Blood Count 13.2 T/CUMM (4-12)
[2021-08-06 06:25] LABS: Calcium 8.8 MG/DL (8.5-10.1); Osmolality,Calculated 280.8 MOS/KG (273-304); Potassium 3.6 MMOL/L (3.5-5.1)
[2021-08-06] MEDS ORDERED: MORPHINE 2 MG/1 ML SYRINGE IV PRN (08:34)
[2021-08-06] MEDS: LORazepam 1 MG TABLET PO SCH ×3 (08:45→21:42)
[2021-08-06] MEDS: ASPIRIN EC 81 MG TABLET PO SCH (08:45)
[2021-08-06] MEDS: DOCUSATE SODIUM 100 MG CAPSULE PO SCH ×2 (08:45→21:43)
[2021-08-06] MEDS: METOPROLOL TARTRATE 25 MG TABLET PO SCH ×2 (08:45→21:42)
[2021-08-06] MEDS: POTASSIUM CHLORIDE 10 MEQ TABLET PO SCH ×2 (08:45→21:42)
[2021-08-06] MEDS: FUROSEMIDE 40 MG/4 ML VIAL IV SCH (09:06)
[2021-08-06 09:52] LABS: Albumin 2.6 G/DL (3.4-5.0); Bilirubin,Direct 0.56 MG/DL (0.0-0.20); Bilirubin,Indirect 0.6 MG/DL (0.0-1.0); Bilirubin,Total 1.2 MG/DL (0.20-1.00); Total Protein 6.4 G/DL (6.4-8.2)
[2021-08-06] MEDS: LEVOFLOXACIN INJ 500 MG/100 ML PREMIX IV SCH (11:51)
[2021-08-06] MEDS: LORazepam 2 MG/1 ML VIAL IV PRN (13:04)
[2021-08-06] MEDS: KETOROLAC 15 MG/1 ML VIAL IV SCH ×3 (14:51→21:41)
[2021-08-06] MEDS: PANTOPRAZOLE 40 MG TABLET PO SCH (21:43)
[2021-08-06] MEDS: MULTIVITAMIN (INTRINSIC) CAPSULE PO SCH (21:43)
[2021-08-06] MEDS: LOSARTAN 50 MG TABLET PO SCH (21:43)
[2021-08-07] MEDS: ALBUTEROL 2.5 MG/3 ML NEB RESP TX SCH ×4 (00:34→20:54)
[2021-08-07] MEDS: KETOROLAC 15 MG/1 ML VIAL IV SCH ×4 (03:43→21:40)
[2021-08-07 05:35] LABS: Basophils % 0.3 % (0.0-0.8); Eosinophils # 0.1 10*3/uL (0.0-0.87); Eosinophils % 1.1 % (0.00-10.9); Hematocrit 37.8 VOL% (35.7-47.0); Hemoglobin 11.8 GM/DL (12.0-16.0); Immature Granulocytes % 0.6 %; Immature Granulocytes Absolute 0.06 #; Lymphocytes # 1.1 10*3/uL (1.4-4.0); Lymphocytes % 11.8 % (21.3-54.2); Mean Corpuscular HGB Conc 31.2 GM/DL (32-36); Mean Corpuscular Volume 96.7 FL (87-102); Mean Platelet Volume 10.6 FL (9.6-12.0); Monocytes % 8.8 % (1.7-12.7); Neutrophils % 77.4 % (38.7-73.9); Platelet Count 154 T/CUMM (130-400); Red Blood Count 3.91 MC/CUMM (3.8-5.5); Red Cell Distribution Width 14.1 % (9.3-17.3); White Blood Count 9.5 T/CUMM (4-12)
[2021-08-07 05:55] LABS: Calcium 8.6 MG/DL (8.5-10.1); Osmolality,Calculated 281.8 MOS/KG (273-304); Potassium 3.8 MMOL/L (3.5-5.1)
[2021-08-07 06:00] LABS: Albumin 2.2 G/DL (3.4-5.0); Bilirubin,Direct 0.22 MG/DL (0.0-0.20); Bilirubin,Indirect 0.9 MG/DL (0.0-1.0); Bilirubin,Total 1.1 MG/DL (0.20-1.00); Total Protein 6.1 G/DL (6.4-8.2)
[2021-08-07] MEDS: FUROSEMIDE 40 MG/4 ML VIAL IV SCH (10:14)
[2021-08-07] MEDS: POTASSIUM CHLORIDE 10 MEQ TABLET PO SCH ×2 (10:15→21:39)
[2021-08-07] MEDS: LORazepam 1 MG TABLET PO SCH ×3 (10:15→21:38)
[2021-08-07] MEDS: ASPIRIN EC 81 MG TABLET PO SCH (10:15)
[2021-08-07] MEDS: METOPROLOL TARTRATE 25 MG TABLET PO SCH ×2 (10:16→21:38)
[2021-08-07] MEDS: DOCUSATE SODIUM 100 MG CAPSULE PO SCH ×2 (10:16→21:38)
[2021-08-07] MEDS: LEVOFLOXACIN INJ 500 MG/100 ML PREMIX IV SCH (12:49)
[2021-08-07] MEDS ORDERED: BISACODYL 10 MG SUPP RECTAL ONE (15:32)
[2021-08-07] MEDS ORDERED: POLYETHYLENE GLYCOL POWDER 17 GM PACK PO SCH (21:00)
[2021-08-07] MEDS: MULTIVITAMIN (INTRINSIC) CAPSULE PO SCH (21:38)
[2021-08-07] MEDS: LOSARTAN 50 MG TABLET PO SCH (21:39)
[2021-08-07] MEDS: PANTOPRAZOLE 40 MG TABLET PO SCH (21:39)
[2021-08-08] MEDS: ALBUTEROL 2.5 MG/3 ML NEB RESP TX SCH ×5 (00:59→19:36)
[2021-08-08] MEDS: KETOROLAC 15 MG/1 ML VIAL IV SCH ×4 (03:27→21:40)
[2021-08-08 04:48] LABS: Basophils % 0.2 % (0.0-0.8); Eosinophils # 0.2 10*3/uL (0.0-0.87); Eosinophils % 1.5 % (0.00-10.9); Hemoglobin 11.6 GM/DL (12.0-16.0); Lymphocytes # 1.1 10*3/uL (1.4-4.0); Mean Corpuscular HGB Conc 32.2 GM/DL (32-36); Mean Corpuscular Volume 96.3 FL (87-102); Mean Platelet Volume 10.5 FL (9.6-12.0); Neutrophils % 79.3 % (38.7-73.9); Platelet Count 176 T/CUMM (130-400); Red Blood Count 3.74 MC/CUMM (3.8-5.5); Red Cell Distribution Width 13.8 % (9.3-17.3); White Blood Count 9.8 T/CUMM (4-12)
[2021-08-08 05:03] LABS: Calcium 8.7 MG/DL (8.5-10.1); Potassium 4.4 MMOL/L (3.5-5.1)
[2021-08-08 05:11] LABS: Albumin 2.3 G/DL (3.4-5.0); Bilirubin,Total 0.8 MG/DL (0.20-1.00); Osmolality,Calculated 274.4 MOS/KG (273-304); Potassium 4.5 MMOL/L (3.5-5.1)
[2021-08-08] MEDS ORDERED: SODIUM PHOSPHATE ENEMA 133 ML BOTTLE RECTAL PRN (08:21)
[2021-08-08] MEDS: FUROSEMIDE 40 MG/4 ML VIAL IV SCH (09:04)
[2021-08-08] MEDS: POLYETHYLENE GLYCOL POWDER 17 GM PACK PO SCH ×3 (09:14→21:40)
[2021-08-08] MEDS: HYDROmorphone 2 MG/1 ML VIAL IV PRN (09:14)
[2021-08-08] MEDS: DOCUSATE SODIUM 100 MG CAPSULE PO SCH ×2 (09:15→21:39)
[2021-08-08] MEDS: LORazepam 1 MG TABLET PO SCH ×3 (09:15→21:38)
[2021-08-08] MEDS: ASPIRIN EC 81 MG TABLET PO SCH (09:16)
[2021-08-08] MEDS: METOPROLOL TARTRATE 25 MG TABLET PO SCH ×2 (09:16→21:43)
[2021-08-08] MEDS: POTASSIUM CHLORIDE 10 MEQ TABLET PO SCH ×2 (09:16→21:39)
[2021-08-08] MEDS: LEVOFLOXACIN INJ 500 MG/100 ML PREMIX IV SCH (11:34)
[2021-08-08] MEDS: LIDOCAINE 5% PATCH TRANSDERM SCH (11:35)
[2021-08-08] MEDS: ONDANSETRON 4 MG/2 ML VIAL IV PRN (15:37)
[2021-08-08] MEDS: MULTIVITAMIN (INTRINSIC) CAPSULE PO SCH (21:38)
[2021-08-08] MEDS: PANTOPRAZOLE 40 MG TABLET PO SCH (21:39)
[2021-08-08] MEDS: LOSARTAN 50 MG TABLET PO SCH (21:39)
[2021-08-09] MEDS: ALBUTEROL 2.5 MG/3 ML NEB RESP TX SCH ×4 (01:05→20:24)
[2021-08-09] MEDS: ONDANSETRON 4 MG/2 ML VIAL IV PRN ×3 (02:40→15:06)
[2021-08-09] MEDS: KETOROLAC 15 MG/1 ML VIAL IV SCH ×4 (03:11→22:09)
[2021-08-09 06:33] LABS: Basophils % 0.4 % (0.0-0.8); Eosinophils # 0.1 10*3/uL (0.0-0.87); Eosinophils % 1.2 % (0.00-10.9); Hematocrit 37.4 VOL% (35.7-47.0); Hemoglobin 11.9 GM/DL (12.0-16.0); Immature Granulocytes % 1.2 %; Immature Granulocytes Absolute 0.11 #; Lymphocytes # 1.2 10*3/uL (1.4-4.0); Lymphocytes % 13.3 % (21.3-54.2); Mean Corpuscular HGB Conc 31.8 GM/DL (32-36); Mean Corpuscular Volume 96.9 FL (87-102); Mean Platelet Volume 10.3 FL (9.6-12.0); Monocytes % 9.5 % (1.7-12.7); Neutrophils % 74.4 % (38.7-73.9); Platelet Count 217 T/CUMM (130-400); Red Blood Count 3.86 MC/CUMM (3.8-5.5); Red Cell Distribution Width 13.9 % (9.3-17.3); White Blood Count 9.1 T/CUMM (4-12)
[2021-08-09 06:38] LABS: Osmolality,Calculated 275.2 MOS/KG (273-304); Potassium 4.4 MMOL/L (3.5-5.1)
[2021-08-09] MEDS: LORazepam 1 MG TABLET PO SCH ×3 (09:00→21:02)
[2021-08-09] MEDS: METOPROLOL TARTRATE 25 MG TABLET PO SCH ×2 (09:01→21:02)
[2021-08-09] MEDS: DOCUSATE SODIUM 100 MG CAPSULE PO SCH ×2 (09:01→21:02)
[2021-08-09] MEDS: POLYETHYLENE GLYCOL POWDER 17 GM PACK PO SCH ×2 (09:02→21:01)
[2021-08-09] MEDS: ASPIRIN EC 81 MG TABLET PO SCH (09:02)
[2021-08-09] MEDS: POTASSIUM CHLORIDE 10 MEQ TABLET PO SCH ×2 (09:02→21:02)
[2021-08-09] MEDS: FUROSEMIDE 40 MG/4 ML VIAL IV SCH (09:06)
[2021-08-09] MEDS: LIDOCAINE 5% PATCH TRANSDERM SCH (09:07)
[2021-08-09] MEDS: LEVOFLOXACIN INJ 500 MG/100 ML PREMIX IV SCH (17:49)
[2021-08-09] MEDS: LOSARTAN 50 MG TABLET PO SCH (21:02)
[2021-08-09] MEDS: MULTIVITAMIN (INTRINSIC) CAPSULE PO SCH (21:02)
[2021-08-09] MEDS: PANTOPRAZOLE 40 MG TABLET PO SCH (21:02)
[2021-08-10] MEDS: ALBUTEROL 2.5 MG/3 ML NEB RESP TX SCH ×5 (01:05→20:23)
[2021-08-10] MEDS: KETOROLAC 15 MG/1 ML VIAL IV SCH ×4 (04:32→22:17)
[2021-08-10] MEDS: ONDANSETRON 4 MG/2 ML VIAL IV PRN ×2 (05:00→10:21)
[2021-08-10] MEDS: LORazepam 2 MG/1 ML VIAL IV PRN ×2 (05:17→13:43)
[2021-08-10 06:33] LABS: Basophils % 0.5 % (0.0-0.8); Eosinophils # 0.2 10*3/uL (0.0-0.87); Eosinophils % 2.4 % (0.00-10.9); Hemoglobin 12.5 GM/DL (12.0-16.0); Immature Granulocytes % 1.4 %; Immature Granulocytes Absolute 0.11 #; Lymphocytes # 1.1 10*3/uL (1.4-4.0); Lymphocytes % 13.9 % (21.3-54.2); Mean Corpuscular HGB Conc 32.1 GM/DL (32-36); Mean Corpuscular Volume 96.1 FL (87-102); Mean Platelet Volume 10.4 FL (9.6-12.0); Monocytes % 9.1 % (1.7-12.7); Neutrophils % 72.7 % (38.7-73.9); Platelet Count 235 T/CUMM (130-400); Red Blood Count 4.06 MC/CUMM (3.8-5.5); Red Cell Distribution Width 13.7 % (9.3-17.3); White Blood Count 7.6 T/CUMM (4-12)
[2021-08-10 06:48] LABS: Calcium 8.9 MG/DL (8.5-10.1); Potassium 3.9 MMOL/L (3.5-5.1)
[2021-08-10] MEDS ORDERED: METOCLOPRAMIDE 10 MG/2 ML VIAL IV ONE (07:45)
[2021-08-10] MEDS: ASPIRIN EC 81 MG TABLET PO SCH (08:47)
[2021-08-10] MEDS: METOPROLOL TARTRATE 25 MG TABLET PO SCH ×2 (08:47→20:54)
[2021-08-10] MEDS: DOCUSATE SODIUM 100 MG CAPSULE PO SCH ×2 (08:47→21:00)
[2021-08-10] MEDS: POTASSIUM CHLORIDE 10 MEQ TABLET PO SCH ×2 (08:47→20:54)
[2021-08-10] MEDS: LIDOCAINE 5% PATCH TRANSDERM SCH (08:47)
[2021-08-10] MEDS: FUROSEMIDE 40 MG/4 ML VIAL IV SCH (09:00)
[2021-08-10] MEDS: POLYETHYLENE GLYCOL POWDER 17 GM PACK PO SCH ×2 (09:02→21:00)
[2021-08-10] MEDS: HYDROmorphone 2 MG/1 ML VIAL IV PRN (10:28)
[2021-08-10] MEDS: LEVOFLOXACIN INJ 500 MG/100 ML PREMIX IV SCH (11:59)
[2021-08-10] MEDS: LOSARTAN 50 MG TABLET PO SCH (20:54)
[2021-08-10] MEDS: PANTOPRAZOLE 40 MG TABLET PO SCH (20:54)
[2021-08-10] MEDS: MULTIVITAMIN (INTRINSIC) CAPSULE PO SCH (20:54)
[2021-08-11] MEDS: LORazepam 2 MG/1 ML VIAL IV PRN ×3 (00:12→16:05)
[2021-08-11] MEDS: ONDANSETRON 4 MG/2 ML VIAL IV PRN (00:13)
[2021-08-11] MEDS: KETOROLAC 15 MG/1 ML VIAL IV SCH (04:30)
[2021-08-11 05:54] LABS: Basophils % 0.5 % (0.0-0.8); Eosinophils # 0.2 10*3/uL (0.0-0.87); Eosinophils % 2.2 % (0.00-10.9); Hematocrit 35.3 VOL% (35.7-47.0); Hemoglobin 11.5 GM/DL (12.0-16.0); Immature Granulocytes % 2.3 %; Immature Granulocytes Absolute 0.17 #; Lymphocytes # 1.8 10*3/uL (1.4-4.0); Mean Corpuscular HGB Conc 32.6 GM/DL (32-36); Mean Corpuscular Volume 94.9 FL (87-102); Mean Platelet Volume 10.3 FL (9.6-12.0); Platelet Count 240 T/CUMM (130-400); Red Blood Count 3.72 MC/CUMM (3.8-5.5); Red Cell Distribution Width 13.5 % (9.3-17.3); White Blood Count 7.4 T/CUMM (4-12)
[2021-08-11 06:15] LABS: Potassium 3.6 MMOL/L (3.5-5.1)
[2021-08-11] MEDS: ALBUTEROL 2.5 MG/3 ML NEB RESP TX SCH ×3 (07:40→19:40)
[2021-08-11] MEDS: FUROSEMIDE 40 MG/4 ML VIAL IV SCH (10:01)
[2021-08-11] MEDS: LIDOCAINE 5% PATCH TRANSDERM SCH (10:01)
[2021-08-11] MEDS: ASPIRIN EC 81 MG TABLET PO SCH (10:02)
[2021-08-11] MEDS: POTASSIUM CHLORIDE 10 MEQ TABLET PO SCH ×2 (10:02→20:26)
[2021-08-11] MEDS: METOPROLOL TARTRATE 25 MG TABLET PO SCH ×2 (10:02→20:26)
[2021-08-11] MEDS: POLYETHYLENE GLYCOL POWDER 17 GM PACK PO SCH ×2 (10:03→20:27)
[2021-08-11] MEDS: DOCUSATE SODIUM 100 MG CAPSULE PO SCH ×2 (10:03→20:27)
[2021-08-11] MEDS: LEVOFLOXACIN INJ 500 MG/100 ML PREMIX IV SCH (12:33)
[2021-08-11] MEDS: LOSARTAN 50 MG TABLET PO SCH (20:26)
[2021-08-11] MEDS: MULTIVITAMIN (INTRINSIC) CAPSULE PO SCH (20:26)
[2021-08-11] MEDS: PANTOPRAZOLE 40 MG TABLET PO SCH (20:26)
[2021-08-11] MEDS ORDERED: diphenhydrAMINE 50 MG/1 ML VIAL IV SCH (22:01)
[2021-08-11] MEDS ORDERED: CETIRIZINE 10 MG TABLET PO ONE (22:03)
[2021-08-11] MEDS ORDERED: diphenhydrAMINE 50 MG/1 ML VIAL IV PRN (22:07)
[2021-08-12] MEDS: ALBUTEROL 2.5 MG/3 ML NEB RESP TX SCH ×4 (02:35→20:33)
[2021-08-12 05:41] LABS: Basophils % 0.5 % (0.0-0.8); Eosinophils # 0.2 10*3/uL (0.0-0.87); Eosinophils % 2.2 % (0.00-10.9); Hematocrit 35.9 VOL% (35.7-47.0); Hemoglobin 11.1 GM/DL (12.0-16.0); Lymphocytes # 1.5 10*3/uL (1.4-4.0); Lymphocytes % 16.6 % (21.3-54.2); Mean Corpuscular HGB Conc 30.9 GM/DL (32-36); Mean Platelet Volume 9.9 FL (9.6-12.0); Monocytes % 11.3 % (1.7-12.7); Platelet Count 257 T/CUMM (130-400); Red Cell Distribution Width 13.5 % (9.3-17.3); White Blood Count 8.8 T/CUMM (4-12)
[2021-08-12] MEDS: ONDANSETRON 4 MG/2 ML VIAL IV PRN ×2 (05:47→11:24)
[2021-08-12 06:02] LABS: Albumin 2.2 G/DL (3.4-5.0); Calcium 8.5 MG/DL (8.5-10.1); Osmolality,Calculated 273.7 MOS/KG (273-304); Potassium 3.8 MMOL/L (3.5-5.1)
[2021-08-12] MEDS: METOPROLOL TARTRATE 25 MG TABLET PO SCH ×2 (08:37→23:01)
[2021-08-12] MEDS: DOCUSATE SODIUM 100 MG CAPSULE PO SCH ×2 (08:37→23:04)
[2021-08-12] MEDS: POTASSIUM CHLORIDE 10 MEQ TABLET PO SCH ×2 (08:37→23:02)
[2021-08-12] MEDS: LIDOCAINE 5% PATCH TRANSDERM SCH (08:39)
[2021-08-12] MEDS: FUROSEMIDE 40 MG/4 ML VIAL IV SCH (08:40)
[2021-08-12] MEDS: POLYETHYLENE GLYCOL POWDER 17 GM PACK PO SCH ×2 (08:45→23:11)
[2021-08-12] MEDS: ASPIRIN EC 81 MG TABLET PO SCH (08:45)
[2021-08-12] MEDS ORDERED: diphenhydrAMINE CAP 25 MG CAPSULE PO PRN (08:47)
[2021-08-12] MEDS ORDERED: LORazepam 1 MG TABLET PO ONE (11:12)
[2021-08-12] MEDS: LEVOFLOXACIN INJ 500 MG/100 ML PREMIX IV SCH (11:24)
[2021-08-12] MEDS: ACETAMINOPHEN 325 MG TABLET PO PRN (14:35)
[2021-08-12] MEDS: LORazepam 1 MG TABLET PO PRN (23:02)
[2021-08-12] MEDS: MULTIVITAMIN (INTRINSIC) CAPSULE PO SCH (23:03)
[2021-08-12] MEDS: LOSARTAN 50 MG TABLET PO SCH (23:04)
[2021-08-12] MEDS: PANTOPRAZOLE 40 MG TABLET PO SCH (23:05)
[2021-08-13] MEDS: ONDANSETRON 4 MG/2 ML VIAL IV PRN (00:12)
[2021-08-13] MEDS: ALBUTEROL 2.5 MG/3 ML NEB RESP TX SCH ×4 (00:29→19:36)
[2021-08-13] MEDS: ASPIRIN EC 81 MG TABLET PO SCH (09:32)
[2021-08-13] MEDS: METOPROLOL TARTRATE 25 MG TABLET PO SCH ×2 (09:34→23:44)
[2021-08-13] MEDS: POTASSIUM CHLORIDE 10 MEQ TABLET PO SCH ×2 (09:34→23:43)
[2021-08-13] MEDS: DOCUSATE SODIUM 100 MG CAPSULE PO SCH ×2 (09:35→23:42)
[2021-08-13] MEDS: FUROSEMIDE 40 MG/4 ML VIAL IV SCH (09:40)
[2021-08-13] MEDS: LIDOCAINE 5% PATCH TRANSDERM SCH (09:44)
[2021-08-13] MEDS: POLYETHYLENE GLYCOL POWDER 17 GM PACK PO SCH (10:06)
[2021-08-13] MEDS: LORazepam 1 MG TABLET PO PRN ×2 (13:32→23:44)
[2021-08-13] MEDS: MULTIVITAMIN (INTRINSIC) CAPSULE PO SCH (23:42)
[2021-08-13] MEDS: LOSARTAN 50 MG TABLET PO SCH (23:42)
[2021-08-13] MEDS: PANTOPRAZOLE 40 MG TABLET PO SCH (23:44)
[2021-08-14] MEDS: POLYETHYLENE GLYCOL POWDER 17 GM PACK PO SCH ×3 (00:15→20:54)
[2021-08-14] MEDS: ALBUTEROL 2.5 MG/3 ML NEB RESP TX SCH ×4 (00:38→20:31)
[2021-08-14 04:29] LABS: Basophils % 0.3 % (0.0-0.8); Eosinophils # 0.2 10*3/uL (0.0-0.87); Eosinophils % 1.2 % (0.00-10.9); Hematocrit 35.5 VOL% (35.7-47.0); Hemoglobin 11.2 GM/DL (12.0-16.0); Immature Granulocytes % 2.2 %; Immature Granulocytes Absolute 0.31 #; Lymphocytes # 1.6 10*3/uL (1.4-4.0); Lymphocytes % 10.8 % (21.3-54.2); Mean Corpuscular HGB Conc 31.5 GM/DL (32-36); Mean Corpuscular Volume 95.7 FL (87-102); Mean Platelet Volume 10.2 FL (9.6-12.0); Monocytes % 6.9 % (1.7-12.7); Neutrophils % 78.6 % (38.7-73.9); Platelet Count 285 T/CUMM (130-400); Red Blood Count 3.71 MC/CUMM (3.8-5.5); Red Cell Distribution Width 13.5 % (9.3-17.3); White Blood Count 14.3 T/CUMM (4-12)
[2021-08-14 04:44] LABS: Bilirubin,Total 0.4 MG/DL (0.20-1.00); Calcium 8.5 MG/DL (8.5-10.1); Osmolality,Calculated 275.7 MOS/KG (273-304); Potassium 3.5 MMOL/L (3.5-5.1); Total Protein 5.8 G/DL (6.4-8.2)
[2021-08-14] MEDS: METOPROLOL TARTRATE 25 MG TABLET PO SCH ×2 (09:10→20:53)
[2021-08-14] MEDS: DOCUSATE SODIUM 100 MG CAPSULE PO SCH ×2 (09:10→20:54)
[2021-08-14] MEDS: ASPIRIN EC 81 MG TABLET PO SCH (09:10)
[2021-08-14] MEDS: LIDOCAINE 5% PATCH TRANSDERM SCH (09:11)
[2021-08-14] MEDS: FUROSEMIDE 40 MG/4 ML VIAL IV SCH (09:11)
[2021-08-14] MEDS: POTASSIUM CHLORIDE 10 MEQ TABLET PO SCH ×2 (09:16→20:54)
[2021-08-14] MEDS: ACETAMINOPHEN 325 MG TABLET PO PRN (09:16)
[2021-08-14] MEDS: LORazepam 1 MG TABLET PO PRN ×2 (09:17→14:19)
[2021-08-14] MEDS: ONDANSETRON 4 MG/2 ML VIAL IV PRN (14:19)
[2021-08-14] MEDS: MULTIVITAMIN (INTRINSIC) CAPSULE PO SCH (20:53)
[2021-08-14] MEDS: PANTOPRAZOLE 40 MG TABLET PO SCH (20:54)
[2021-08-14] MEDS: LOSARTAN 50 MG TABLET PO SCH (20:54)
[2021-08-15] MEDS: ALBUTEROL 2.5 MG/3 ML NEB RESP TX SCH ×4 (01:01→19:39)
[2021-08-15 06:56] LABS: Basophils % 0.4 % (0.0-0.8); Eosinophils # 0.1 10*3/uL (0.0-0.87); Eosinophils % 1.3 % (0.00-10.9); Hematocrit 33.8 VOL% (35.7-47.0); Hemoglobin 10.6 GM/DL (12.0-16.0); Immature Granulocytes % 1.8 %; Immature Granulocytes Absolute 0.19 #; Lymphocytes # 1.3 10*3/uL (1.4-4.0); Lymphocytes % 12.9 % (21.3-54.2); Mean Corpuscular HGB Conc 31.4 GM/DL (32-36); Mean Corpuscular Volume 95.8 FL (87-102); Mean Platelet Volume 9.8 FL (9.6-12.0); Monocytes % 5.6 % (1.7-12.7); Platelet Count 329 T/CUMM (130-400); Red Blood Count 3.53 MC/CUMM (3.8-5.5); Red Cell Distribution Width 13.6 % (9.3-17.3); White Blood Count 10.4 T/CUMM (4-12)
[2021-08-15 07:07] LABS: Calcium 8.7 MG/DL (8.5-10.1); Potassium 3.4 MMOL/L (3.5-5.1)
[2021-08-15] MEDS: LORazepam 1 MG TABLET PO PRN ×2 (10:17→20:46)
[2021-08-15] MEDS: METOPROLOL TARTRATE 25 MG TABLET PO SCH ×2 (10:19→20:35)
[2021-08-15] MEDS: DOCUSATE SODIUM 100 MG CAPSULE PO SCH ×2 (10:20→20:35)
[2021-08-15] MEDS: ASPIRIN EC 81 MG TABLET PO SCH (10:20)
[2021-08-15] MEDS: LEVOFLOXACIN 500 MG TABLET PO SCH (10:21)
[2021-08-15] MEDS: POTASSIUM CHLORIDE 10 MEQ TABLET PO SCH ×2 (10:22→20:35)
[2021-08-15] MEDS: LIDOCAINE 5% PATCH TRANSDERM SCH (10:25)
[2021-08-15] MEDS: POLYETHYLENE GLYCOL POWDER 17 GM PACK PO SCH ×2 (10:26→22:33)
[2021-08-15] MEDS: FUROSEMIDE 40 MG/4 ML VIAL IV SCH (10:30)
[2021-08-15] MEDS: ONDANSETRON 4 MG/2 ML VIAL IV PRN (14:36)
[2021-08-15] MEDS: MULTIVITAMIN (INTRINSIC) CAPSULE PO SCH (20:35)
[2021-08-15] MEDS: PANTOPRAZOLE 40 MG TABLET PO SCH (20:35)
[2021-08-15] MEDS: LOSARTAN 50 MG TABLET PO SCH (20:35)
[2021-08-16] MEDS: ALBUTEROL 2.5 MG/3 ML NEB RESP TX SCH ×4 (01:12→18:45)
[2021-08-16 05:16] LABS: Basophils % 0.5 % (0.0-0.8); Eosinophils # 0.1 10*3/uL (0.0-0.87); Eosinophils % 1.4 % (0.00-10.9); Hematocrit 36.4 VOL% (35.7-47.0); Hemoglobin 11.6 GM/DL (12.0-16.0); Immature Granulocytes % 2.9 %; Immature Granulocytes Absolute 0.25 #; Lymphocytes # 1.7 10*3/uL (1.4-4.0); Lymphocytes % 20.3 % (21.3-54.2); Mean Corpuscular HGB Conc 31.9 GM/DL (32-36); Mean Platelet Volume 10.4 FL (9.6-12.0); Monocytes % 7.7 % (1.7-12.7); Neutrophils % 67.2 % (38.7-73.9); Platelet Count 374 T/CUMM (130-400); Red Blood Count 3.79 MC/CUMM (3.8-5.5); Red Cell Distribution Width 13.6 % (9.3-17.3); White Blood Count 8.5 T/CUMM (4-12)
[2021-08-16 05:42] LABS: Calcium 8.8 MG/DL (8.5-10.1); Osmolality,Calculated 276.5 MOS/KG (273-304); Potassium 3.5 MMOL/L (3.5-5.1)
[2021-08-16] MEDS: LORazepam 1 MG TABLET PO PRN (06:48)
[2021-08-16] MEDS: POTASSIUM CHLORIDE 20 MEQ TABLET PO PRN ×2 (09:26→11:29)
[2021-08-16] MEDS: METOPROLOL TARTRATE 25 MG TABLET PO SCH ×2 (09:27→21:05)
[2021-08-16] MEDS: LEVOFLOXACIN 500 MG TABLET PO SCH (09:27)
[2021-08-16] MEDS: DOCUSATE SODIUM 100 MG CAPSULE PO SCH ×2 (09:28→21:04)
[2021-08-16] MEDS: ASPIRIN EC 81 MG TABLET PO SCH (09:28)
[2021-08-16] MEDS: FUROSEMIDE 40 MG TABLET PO SCH (09:29)
[2021-08-16] MEDS: POTASSIUM CHLORIDE 10 MEQ TABLET PO SCH ×2 (09:29→21:05)
[2021-08-16] MEDS: POLYETHYLENE GLYCOL POWDER 17 GM PACK PO SCH ×2 (09:29→21:06)
[2021-08-16] MEDS: LIDOCAINE 5% PATCH TRANSDERM SCH (09:30)
[2021-08-16] MEDS: ACETAMINOPHEN 325 MG TABLET PO PRN (12:16)
[2021-08-16] MEDS: LORazepam 1 MG TABLET PO SCH ×2 (16:20→21:06)
[2021-08-16] MEDS: MUPIROCIN 2% OINT 22 GM TUBE TOP SCH (21:03)
[2021-08-16] MEDS: MULTIVITAMIN (INTRINSIC) CAPSULE PO SCH (21:04)
[2021-08-16] MEDS: LOSARTAN 50 MG TABLET PO SCH (21:05)
[2021-08-16] MEDS: PANTOPRAZOLE 40 MG TABLET PO SCH (21:05)
[2021-08-17 05:55] LABS: Calcium 9.1 MG/DL (8.5-10.1); Osmolality,Calculated 273.8 MOS/KG (273-304); Potassium 4.1 MMOL/L (3.5-5.1)
[2021-08-17] MEDS: ALBUTEROL 2.5 MG/3 ML NEB RESP TX SCH ×3 (08:00→13:15)
[2021-08-17] MEDS: ASPIRIN EC 81 MG TABLET PO SCH (09:03)
[2021-08-17] MEDS: FUROSEMIDE 40 MG TABLET PO SCH (09:03)
[2021-08-17] MEDS: MUPIROCIN 2% OINT 22 GM TUBE TOP SCH (09:03)
[2021-08-17] MEDS: DOCUSATE SODIUM 100 MG CAPSULE PO SCH (09:03)
[2021-08-17] MEDS: METOPROLOL TARTRATE 25 MG TABLET PO SCH (09:03)
[2021-08-17] MEDS: LORazepam 1 MG TABLET PO SCH ×2 (09:04→14:05)
[2021-08-17] MEDS: POTASSIUM CHLORIDE 10 MEQ TABLET PO SCH (09:04)
[2021-08-17] MEDS: LEVOFLOXACIN 500 MG TABLET PO SCH (09:04)
[2021-08-17] MEDS: POLYETHYLENE GLYCOL POWDER 17 GM PACK PO SCH (09:05)
[2021-08-17] MEDS: LIDOCAINE 5% PATCH TRANSDERM SCH (09:05)
[2021-08-17 12:03] VITALS: BP 122/58
== END 2021-08-17 14:56 | disposition swing bed (61) | DRG 291 ==
LOC: EDUNIT# → SUATTDRO → EDBD → N.ED 02:20 → SUATTDRO 06:14 → N.EDINP 06:14 → N.TELEN 09:58 → N.ICU 08-04 18:35 → N.TELES 08-05 11:36
PROVIDERS: ADMIT Internal Medicine; ATTEND Emergency Medicine

== ENCOUNTER 2021-08-18 11:04 | Inpatient (IN) ==
[2021-08-18] MEDS ORDERED: NITROGLYCERIN SL 0.4 MG TABLET SL PRN (11:41)
[2021-08-18] MEDS ORDERED: ONDANSETRON 4 MG/2 ML VIAL IV STA (11:55)
[2021-08-18] MEDS ORDERED: HYDROmorphone 2 MG/1 ML VIAL IV STA (11:55)
[2021-08-18] MEDS ORDERED: ONDANSETRON 4 MG/2 ML VIAL ONE (11:55)
[2021-08-18] MEDS ORDERED: HYDROmorphone 2 MG/1 ML VIAL ONE (11:56)
[2021-08-18 12:21] LABS: Basophils % 0.4 % (0.0-0.8); Eosinophils # 0.1 10*3/uL (0.0-0.87); Eosinophils % 1.1 % (0.00-10.9); Hematocrit 38.2 VOL% (35.7-47.0); Hemoglobin 12.4 GM/DL (12.0-16.0); Immature Granulocytes % 3.5 %; Immature Granulocytes Absolute 0.34 #; Lymphocytes # 1.3 10*3/uL (1.4-4.0); Lymphocytes % 13.1 % (21.3-54.2); Mean Corpuscular HGB Conc 32.5 GM/DL (32-36); Mean Corpuscular Volume 94.8 FL (87-102); Mean Platelet Volume 9.8 FL (9.6-12.0); Monocytes % 7.1 % (1.7-12.7); Neutrophils % 74.8 % (38.7-73.9); Platelet Count 424 T/CUMM (130-400); Red Blood Count 4.03 MC/CUMM (3.8-5.5); Red Cell Distribution Width 13.6 % (9.3-17.3); White Blood Count 9.6 T/CUMM (4-12)
[2021-08-18 12:38] LABS: PT Patient Result 11.6 SECS (10.5-12.0)
[2021-08-18 12:39] LABS: Albumin 2.7 G/DL (3.4-5.0); Bilirubin,Total 0.8 MG/DL (0.20-1.00); Calcium 8.6 MG/DL (8.5-10.1); Osmolality,Calculated 278.7 MOS/KG (273-304); Potassium 4.2 MMOL/L (3.5-5.1); Total Protein 6.1 G/DL (6.4-8.2)
[2021-08-18 13:56] LABS: Bacteria,Urine Occasional /HPF (Few); Bilirubin,Urine Negative (Negative); Blood, Urine Negative (Negative); Glucose,Urine (UA) Negative (Negative); Ketones,Urine Negative (Negative); Nitrite,Urine Negative (Negative); Protein,Urine Negative; RBC,Urine <1 /HPF (0-4); Squamous Epithelial Cell,Urine Occasional /HPF (0-10); Urine Appearance CLEAR (Clear); Urine Color Yellow (Yellow); Urine Specific Gravity 1.006 (1.001-1.035); Urine Urobilinogen < 2.0 EU/DL (0.2-1.0)
[2021-08-18] MEDS ORDERED: LORazepam 2 MG/1 ML VIAL IV STA (14:17)
[2021-08-18] MEDS ORDERED: LORazepam 2 MG/1 ML VIAL ONE (14:19)
[2021-08-18] MEDS ORDERED: LORazepam 0.5 MG TABLET PO PRN (17:19)
[2021-08-18] MEDS ORDERED: ONDANSETRON 4 MG TABLET PO PRN (17:19)
[2021-08-18] MEDS ORDERED: SIMETHICONE CHEW 125 MG TABLET PO PRN (17:19)
[2021-08-18] MEDS ORDERED: GLUCAGON 1 MG VIAL IM PRN (17:24)
[2021-08-18] MEDS ORDERED: ACETAMINOPHEN 325 MG TABLET PO PRN (17:24)
[2021-08-18] MEDS ORDERED: DEXTROSE 50% 25 GM/50 ML SYRINGE IV PRN (17:28)
[2021-08-18] MEDS ORDERED: diphenhydrAMINE CAP 25 MG CAPSULE PO PRN (17:38)
[2021-08-18] MEDS ORDERED: PROMETHAZINE 25 MG TABLET PO PRN (17:39)
[2021-08-18] MEDS: ALBUTEROL 2.5 MG/3 ML NEB RESP TX SCH (20:16)
[2021-08-18] MEDS ORDERED: SODIUM CHLORIDE 0.9% 500 ML IV ONE (20:31)
[2021-08-18 20:35] LABS: Folate 22.77 NG/ML (5.38-24.0); Vitamin B12 736 PG/ML (211-911)
[2021-08-18] MEDS ORDERED: MELATONIN 3 MG TABLET PO SCH (21:00)
[2021-08-18] MEDS ORDERED: VITAMIN E 400 UNIT CAPSULE PO SCH (21:00)
[2021-08-18] MEDS ORDERED: LOSARTAN 50 MG TABLET PO SCH (21:00)
[2021-08-18] MEDS ORDERED: ENOXAPARIN 40 MG/0.4 ML SYRINGE SUBCUT SCH (21:00)
[2021-08-18] MEDS: POTASSIUM CHLORIDE 10 MEQ TABLET PO SCH (21:18)
[2021-08-18] MEDS: APIXABAN 2.5 MG TABLET PO SCH (21:18)
[2021-08-18] MEDS: ATORVASTATIN 40 MG TABLET PO SCH (21:18)
[2021-08-18] MEDS: METOPROLOL TARTRATE 25 MG TABLET PO SCH (21:19)
[2021-08-18] MEDS: DOCUSATE/SENNA 50-8.6 MG TABLET PO SCH (21:19)
[2021-08-18] MEDS: PANTOPRAZOLE 40 MG TABLET PO SCH (21:19)
[2021-08-18] MEDS: BRIMONIDINE 0.2% OPH SOLN 5 ML BOTTLE BOTH EYES SCH (22:28)
[2021-08-18] MEDS: LATANOPROST 0.005% OPH SOLN 2.5 ML BOTTLE BOTH EYES SCH (22:29)
[2021-08-18] MEDS: DORZOLAMIDE 2% OPH SOLN 10 ML BOTTLE BOTH EYES SCH (22:29)
[2021-08-19] MEDS: METOPROLOL TARTRATE 5 MG/5 ML VIAL IV SCH ×2 (00:06→06:42)
[2021-08-19] MEDS: ALBUTEROL 2.5 MG/3 ML NEB RESP TX SCH ×4 (01:36→19:28)
[2021-08-19 06:01] LABS: Basophils % 0.5 % (0.0-0.8); Eosinophils % 0.2 % (0.00-10.9); Hematocrit 40.7 VOL% (35.7-47.0); Hemoglobin 12.9 GM/DL (12.0-16.0); Immature Granulocytes % 2.5 %; Immature Granulocytes Absolute 0.22 #; Lymphocytes # 1.3 10*3/uL (1.4-4.0); Lymphocytes % 14.4 % (21.3-54.2); Mean Corpuscular HGB Conc 31.7 GM/DL (32-36); Mean Corpuscular Volume 96.4 FL (87-102); Mean Platelet Volume 10.5 FL (9.6-12.0); Monocytes % 6.6 % (1.7-12.7); Neutrophils % 75.8 % (38.7-73.9); Platelet Count 286 T/CUMM (130-400); Red Blood Count 4.22 MC/CUMM (3.8-5.5); Red Cell Distribution Width 13.8 % (9.3-17.3); White Blood Count 8.7 T/CUMM (4-12)
[2021-08-19 06:02] LABS: Calcium 8.5 MG/DL (8.5-10.1); Osmolality,Calculated 283.3 MOS/KG (273-304)
[2021-08-19] MEDS ORDERED: LEVOFLOXACIN 500 MG TABLET PO SCH (09:00)
[2021-08-19] MEDS ORDERED: FUROSEMIDE 40 MG TABLET PO SCH (09:00)
[2021-08-19] MEDS: BRIMONIDINE 0.2% OPH SOLN 5 ML BOTTLE BOTH EYES SCH ×2 (12:48→22:37)
[2021-08-19] MEDS: DORZOLAMIDE 2% OPH SOLN 10 ML BOTTLE BOTH EYES SCH ×2 (12:49→22:37)
[2021-08-19] MEDS: METOPROLOL TARTRATE 25 MG TABLET PO SCH (12:49)
[2021-08-19] MEDS: MANNITOL 100 GM/500 ML BAG IV ONE ×2 (12:49→13:22)
[2021-08-19] MEDS: POTASSIUM CHLORIDE 10 MEQ TABLET PO SCH ×2 (12:50→21:28)
[2021-08-19] MEDS: APIXABAN 2.5 MG TABLET PO SCH ×2 (13:22→21:29)
[2021-08-19] MEDS: ASPIRIN EC 81 MG TABLET PO SCH (13:22)
[2021-08-19] MEDS ORDERED: ACETAMINOPHEN 650 MG SUPP RECTAL PRN (13:23)
[2021-08-19] MEDS ORDERED: MANNITOL 100 GM/500 ML BAG IV ONE (14:00)
[2021-08-19] MEDS: LIDOCAINE 5% PATCH TRANSDERM SCH (15:10)
[2021-08-19] MEDS ORDERED: ASPIRIN EC 81 MG TABLET PO ONE (16:35)
[2021-08-19] MEDS ORDERED: APIXABAN 2.5 MG TABLET PO ONE (16:35)
[2021-08-19] MEDS: ATORVASTATIN 40 MG TABLET PO SCH (21:28)
[2021-08-19] MEDS: DOCUSATE/SENNA 50-8.6 MG TABLET PO SCH (21:28)
[2021-08-19] MEDS: PANTOPRAZOLE 40 MG TABLET PO SCH (21:28)
[2021-08-19] MEDS: MANNITOL 100 GM/500 ML BAG IV SCH (21:29)
[2021-08-19] MEDS: LATANOPROST 0.005% OPH SOLN 2.5 ML BOTTLE BOTH EYES SCH (22:37)
[2021-08-20] MEDS: ALBUTEROL 2.5 MG/3 ML NEB RESP TX SCH ×4 (00:26→19:23)
[2021-08-20 13:19] LABS: Basophils % 0.3 % (0.0-0.8); Eosinophils % 0.1 % (0.00-10.9); Hematocrit 38.7 VOL% (35.7-47.0); Hemoglobin 12.5 GM/DL (12.0-16.0); Immature Granulocytes % 1.6 %; Immature Granulocytes Absolute 0.19 #; Lymphocytes # 1.2 10*3/uL (1.4-4.0); Lymphocytes % 9.8 % (21.3-54.2); Mean Corpuscular HGB Conc 32.3 GM/DL (32-36); Mean Corpuscular Volume 95.1 FL (87-102); Mean Platelet Volume 9.8 FL (9.6-12.0); Monocytes % 6.8 % (1.7-12.7); Neutrophils % 81.4 % (38.7-73.9); Platelet Count 449 T/CUMM (130-400); Red Blood Count 4.07 MC/CUMM (3.8-5.5); Red Cell Distribution Width 13.9 % (9.3-17.3); White Blood Count 12.1 T/CUMM (4-12)
[2021-08-20] MEDS: POTASSIUM CHLORIDE 10 MEQ TABLET PO SCH ×2 (13:58→21:48)
[2021-08-20] MEDS: ASPIRIN EC 81 MG TABLET PO SCH (13:58)
[2021-08-20] MEDS: BRIMONIDINE 0.2% OPH SOLN 5 ML BOTTLE BOTH EYES SCH ×2 (13:58→22:37)
[2021-08-20] MEDS: APIXABAN 2.5 MG TABLET PO SCH ×2 (13:58→21:48)
[2021-08-20] MEDS: LIDOCAINE 5% PATCH TRANSDERM SCH (13:59)
[2021-08-20] MEDS: MANNITOL 100 GM/500 ML BAG IV SCH ×2 (13:59→21:48)
[2021-08-20] MEDS: DORZOLAMIDE 2% OPH SOLN 10 ML BOTTLE BOTH EYES SCH ×2 (13:59→22:37)
[2021-08-20 14:04] LABS: Osmolality,Calculated 283.3 MOS/KG (273-304); Potassium 3.8 MMOL/L (3.5-5.1)
[2021-08-20] MEDS: SODIUM CHLORIDE 0.9% 1,000 ML IV SCH (15:27)
[2021-08-20] MEDS: LEVOFLOXACIN INJ 500 MG/100 ML PREMIX IV SCH (18:38)
[2021-08-20] MEDS: PANTOPRAZOLE 40 MG TABLET PO SCH (21:48)
[2021-08-20] MEDS: ATORVASTATIN 40 MG TABLET PO SCH (21:48)
[2021-08-20] MEDS: DOCUSATE/SENNA 50-8.6 MG TABLET PO SCH (21:48)
[2021-08-20] MEDS: LATANOPROST 0.005% OPH SOLN 2.5 ML BOTTLE BOTH EYES SCH (22:37)
[2021-08-21] MEDS: ALBUTEROL 2.5 MG/3 ML NEB RESP TX SCH ×4 (00:14→20:21)
[2021-08-21 05:16] LABS: Basophils % 0.3 % (0.0-0.8); Eosinophils % 0.1 % (0.00-10.9); Hematocrit 42.2 VOL% (35.7-47.0); Hemoglobin 12.9 GM/DL (12.0-16.0); Immature Granulocytes % 1.3 %; Immature Granulocytes Absolute 0.15 #; Lymphocytes # 1.2 10*3/uL (1.4-4.0); Lymphocytes % 10.1 % (21.3-54.2); Mean Corpuscular HGB Conc 30.6 GM/DL (32-36); Mean Corpuscular Volume 98.6 FL (87-102); Mean Platelet Volume 10.2 FL (9.6-12.0); Monocytes % 8.8 % (1.7-12.7); Neutrophils % 79.4 % (38.7-73.9); Platelet Count 444 T/CUMM (130-400); Red Blood Count 4.28 MC/CUMM (3.8-5.5); Red Cell Distribution Width 14.1 % (9.3-17.3); White Blood Count 11.8 T/CUMM (4-12)
[2021-08-21 05:45] LABS: Calcium 9.4 MG/DL (8.5-10.1); Osmolality,Calculated 290.8 MOS/KG (273-304); Potassium 3.7 MMOL/L (3.5-5.1)
[2021-08-21] MEDS: MANNITOL 100 GM/500 ML BAG IV SCH (09:59)
[2021-08-21] MEDS: LIDOCAINE 5% PATCH TRANSDERM SCH (10:55)
[2021-08-21] MEDS: DORZOLAMIDE 2% OPH SOLN 10 ML BOTTLE BOTH EYES SCH ×2 (11:07→23:00)
[2021-08-21] MEDS: POTASSIUM CHLORIDE 10 MEQ TABLET PO SCH ×2 (11:08→23:00)
[2021-08-21] MEDS: APIXABAN 2.5 MG TABLET PO SCH ×2 (11:08→23:00)
[2021-08-21] MEDS: ASPIRIN EC 81 MG TABLET PO SCH (11:09)
[2021-08-21] MEDS: ZINC OXIDE PASTE 113 GM TUBE TOP SCH ×2 (13:30→23:00)
[2021-08-21] MEDS ORDERED: hydrALAZINE 20 MG/1 ML VIAL IV ONE (16:18)
[2021-08-21] MEDS ORDERED: hydrALAZINE 20 MG/1 ML VIAL IV PRN (16:21)
[2021-08-21] MEDS: SODIUM CHLORIDE 0.9% 1,000 ML IV SCH (16:57)
[2021-08-21] MEDS: BRIMONIDINE 0.2% OPH SOLN 5 ML BOTTLE BOTH EYES SCH ×2 (16:58→23:00)
[2021-08-21] MEDS: LEVOFLOXACIN INJ 500 MG/100 ML PREMIX IV SCH (18:11)
[2021-08-21] MEDS: LATANOPROST 0.005% OPH SOLN 2.5 ML BOTTLE BOTH EYES SCH (23:00)
[2021-08-21] MEDS: DOCUSATE/SENNA 50-8.6 MG TABLET PO SCH (23:00)
[2021-08-21] MEDS: PANTOPRAZOLE 40 MG TABLET PO SCH (23:00)
[2021-08-21] MEDS: ATORVASTATIN 40 MG TABLET PO SCH (23:00)
[2021-08-22] MEDS: ALBUTEROL 2.5 MG/3 ML NEB RESP TX SCH ×3 (00:32→16:17)
[2021-08-22] MEDS: MANNITOL 100 GM/500 ML BAG IV SCH ×3 (00:43→21:27)
[2021-08-22 06:22] LABS: Calcium 9.1 MG/DL (8.5-10.1); Potassium 3.8 MMOL/L (3.5-5.1)
[2021-08-22 06:33] LABS: Basophils % 0.2 % (0.0-0.8); Hematocrit 41.5 VOL% (35.7-47.0); Hemoglobin 12.7 GM/DL (12.0-16.0); Immature Granulocytes % 0.8 %; Immature Granulocytes Absolute 0.11 #; Lymphocytes # 1.1 10*3/uL (1.4-4.0); Lymphocytes % 8.3 % (21.3-54.2); Mean Corpuscular HGB Conc 30.6 GM/DL (32-36); Mean Corpuscular Volume 99.3 FL (87-102); Mean Platelet Volume 10.6 FL (9.6-12.0); Monocytes % 8.2 % (1.7-12.7); Neutrophils % 82.5 % (38.7-73.9); Platelet Count 414 T/CUMM (130-400); Red Blood Count 4.18 MC/CUMM (3.8-5.5); Red Cell Distribution Width 14.5 % (9.3-17.3); White Blood Count 13.5 T/CUMM (4-12)
[2021-08-22] MEDS: DORZOLAMIDE 2% OPH SOLN 10 ML BOTTLE BOTH EYES SCH ×2 (09:15→21:27)
[2021-08-22] MEDS: LIDOCAINE 5% PATCH TRANSDERM SCH (09:15)
[2021-08-22] MEDS: BRIMONIDINE 0.2% OPH SOLN 5 ML BOTTLE BOTH EYES SCH ×2 (09:16→21:27)
[2021-08-22] MEDS: APIXABAN 2.5 MG TABLET PO SCH ×2 (09:16→21:27)
[2021-08-22] MEDS: ASPIRIN EC 81 MG TABLET PO SCH (09:16)
[2021-08-22] MEDS: POTASSIUM CHLORIDE 10 MEQ TABLET PO SCH ×2 (09:16→21:27)
[2021-08-22] MEDS: ZINC OXIDE PASTE 113 GM TUBE TOP SCH ×2 (09:46→21:27)
[2021-08-22] MEDS: DILTIAZEM 30 MG TABLET PO SCH ×4 (09:46→21:27)
[2021-08-22] MEDS: LORazepam 2 MG/1 ML VIAL IV PRN ×2 (11:24→21:27)
[2021-08-22] MEDS ORDERED: LEVALBUTEROL 1.25 MG/3 ML NEB RESP TX PRN (13:30)
[2021-08-22] MEDS: LEVOFLOXACIN INJ 500 MG/100 ML PREMIX IV SCH (16:47)
[2021-08-22] MEDS: LATANOPROST 0.005% OPH SOLN 2.5 ML BOTTLE BOTH EYES SCH (21:27)
[2021-08-22] MEDS: DOCUSATE/SENNA 50-8.6 MG TABLET PO SCH (21:27)
[2021-08-22] MEDS: PANTOPRAZOLE 40 MG TABLET PO SCH (21:27)
[2021-08-23] MEDS: POTASSIUM CHLORIDE 10 MEQ TABLET PO SCH (09:59)
[2021-08-23] MEDS: MANNITOL 100 GM/500 ML BAG IV SCH (10:00)
[2021-08-23] MEDS: BRIMONIDINE 0.2% OPH SOLN 5 ML BOTTLE BOTH EYES SCH (10:03)
[2021-08-23] MEDS: LIDOCAINE 5% PATCH TRANSDERM SCH (10:04)
[2021-08-23] MEDS: APIXABAN 2.5 MG TABLET PO SCH (10:04)
[2021-08-23] MEDS: ASPIRIN EC 81 MG TABLET PO SCH (10:04)
[2021-08-23] MEDS: DILTIAZEM 30 MG TABLET PO SCH ×2 (10:06→14:58)
[2021-08-23] MEDS: ZINC OXIDE PASTE 113 GM TUBE TOP SCH (10:07)
[2021-08-23] MEDS: DORZOLAMIDE 2% OPH SOLN 10 ML BOTTLE BOTH EYES SCH (10:07)
[2021-08-23] MEDS: LORazepam 2 MG/1 ML VIAL IV PRN (11:35)
[2021-08-23 12:51] VITALS: BP 155/72
== END 2021-08-23 16:40 | disposition hospice, home (50) | DRG 64 ==
LOC: EDBD → EDUNIT# → N.EDINP 11:04 → N.ED 11:04 → N.TELEN 17:53 → SUATTDRO 08-19 11:35
PROVIDERS: ADMIT Emergency Medicine; ATTEND Internal Medicine